=== PATIENT | male | born 1955 | race Caucasian/White ===

== ENCOUNTER 2021-04-23 18:25 | Emergency (ER) | payer MEDICARE, OTHER ==
[~2021-04-23] VITALS: Ht 172.7 cm; Wt 74.4 kg
[2021-04-23 18:27] VITALS: BP 151/78
[2021-04-23] MEDS ORDERED: OXYMETAZOLINE (AFRIN) 0.05% NA 30 ML BTL ONE (18:34)
--- NOTE | 2021-04-23 18:35 | ED EENT ---
History of Present Illness General Chief Complaint: Nasal Problems Stated Complaint: NOSE BLEED X2 DAYS History of Present Illness Date Seen by Provider: Apr 23, 2021 Time Seen by Provider: 18:31 Initial Comments 66-year-old male presents with bleeding of his left nare. He reports that started about 2-1/2 days ago. That she has continued to bleed and is unable to get it to stop. 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 Patient is not on any blood thinners. Patient denies any injury. Allergies and Home Medications Allergies Coded Allergies: No Known Drug Allergies (Unverified , 04/23/21) Patient Home Medication List Home Medication List Reviewed: Yes Review of Systems Review of Systems Constitutional: No chills, No fever Eyes: No Symptoms Reported Ears: No Symptoms Reported Nose: see HPI Mouth: no symptoms reported Throat: no symptoms reported Respiratory: no symptoms reported Cardiovascular: no symptoms reported Gastrointestinal: no symptoms reported Musculoskeletal: no symptoms reported Past Nncmsgc-Tdtego-Wpqcfx Hx Past Med/Social Hx: Reviewed Nursing Past Med/Soc Hx Physical Exam Vital Signs Vital Signs - First Documented 04/23/21 18:27 Temp 36.5 Pulse 75 Resp 18 B/P (MAP) 151/78 (102) Pulse Ox 94 O2 Delivery Room Air Height, Weight, BMI Height: '" Weight: lbs. oz. kg; BMI Method: General Appearance: no apparent distress Eyes: bilateral eye normal inspection Nose: active bleeding (left nare) Cardiovascular: normal peripheral pulses, regular rate, rhythm Respiratory: lungs clear, normal breath sounds Gastrointestinal: non tender, soft Neurologic/Psychiatric: alert, normal mood/affect, oriented x 3 Skin: normal color, warm/dry Progress/Results/Core Measures Results/Orders My Orders Orders - HODGES,CARMEN L DO Oxymetazoline 0.05% Nasal [place] (Afrin 0. (04/23/21 21:00) Vital Signs/I&O 04/23/21 18:27 Temp 36.5 Pulse 75 Resp 18 B/P (MAP) 151/78 (102) Pulse Ox 94 O2 Delivery Room Air Progress Progress Note : Progress Note Rhino Rocket was placed in left nare. Patient tolerated without difficulty. Discussed with him the need to follow-up with his primary care provider tomorrow the next day for removal and recheck of symptoms. Patient stable and discharged Departure Impression Primary Impression: Epistaxis Disposition: HOME, SELF-CARE Condition: Stable Departure-Patient Inst. Referrals: SELF,CHUCK SCHMIDT (PCP/Family) Primary Care Physician Patient Instructions: Nosebleeds (DC) Add. Discharge Instructions: Follow-up with your primary care provider tomorrow for removal of nasal packing and possible ENT consultation if bleeding continues All discharge instructions reviewed with patient and/or family. Voiced understanding. CARMEN HODGES DO Apr 23, 2021 18:35
[2021-04-23] MEDS ORDERED: OXYMETAZOLINE (AFRIN) 0.05% NA 30 ML BTL SCH (21:00)
== END 2021-04-23 19:08 | disposition home or self-care (01) ==
LOC: ER FS 18:27
DX: R04.0 Epistaxis (principal)
CPT/HCPCS: 99283

== ENCOUNTER 2022-01-22 18:39 | Emergency (ER) | payer MEDICARE, OTHER ==
[~2022-01-22] VITALS: Ht 172.7 cm; Wt 76.7 kg
--- NOTE | 2022-01-22 18:55 | ED GU-Male ---
General Stated Complaint: BLOOD IN URINE Source: patient Exam Limitations: no limitations History of Present Illness Date Seen by Provider: Jan 22, 2022 Time Seen by Provider: 18:41 Initial Comments 66yoM with PMH of HTN and HLD coming in due to hematuria. Started having brown- colored urine yesterday and today is more pink. Painless and is never happened before. Denies any history of cancer. Does not take any blood thinners. Does not have any trauma. Is otherwise denying any other acute complaints. Does smoke. Allergies and Home Medications Allergies Coded Allergies: No Known Drug Allergies (Unverified , 04/23/21) Patient Home Medication List Home Medication List Reviewed: Yes Review of Systems Review of Systems Constitutional: No chills, No fever EENTM: No blurred vision Respiratory: No cough Cardiovascular: No chest pain Gastrointestinal: No abdominal pain Genitourinary: denies burning; hematuria Musculoskeletal: no symptoms reported Skin: no symptoms reported Psychiatric/Neurological: No Symptoms Reported Endocrine: No Symptoms Reported Hematologic/Lymphatic: No Symptoms Reported All Other Systemes Reviewed Negative Unless Noted: Yes Past Amlesxi-Znpuzo-Nxvhch Hx Patient Social History Tobacco Use?: Yes Seasonal Allergies Seasonal Allergies: No Past Medical History Surgeries: Yes Tonsillectomy Respiratory: No Cardiac: Yes High Cholesterol, Hypertension Neurological: No Genitourinary: No Gastrointestinal: No Musculoskeletal: No Endocrine: No HEENT: No Cancer: No Psychosocial: No Integumentary: No Blood Disorders: No Physical Exam Vital Signs Vital Signs - First Documented 01/22/22 18:40 Temp 37.0 Pulse 72 Resp 16 B/P (MAP) 190/84 (119) Pulse Ox 100 O2 Delivery Room Air Capillary Refill : Height, Weight, BMI Height: '" Weight: lbs. oz. kg; 24.00 BMI Method: General Appearance: WD/WN, no apparent distress HEENT: PERRL/EOMI, normal ENT inspection, pharynx normal Neck: non-tender, full range of motion, supple, normal inspection Cardiovascular: regular rate, rhythm, no edema, no murmur Respiratory: chest non-tender, lungs clear, normal breath sounds, no respiratory distress, no accessory muscle use Gastrointestinal: normal bowel sounds, non tender, soft; No distended, No guarding, No rebound Back: normal inspection, no CVA tenderness, no vertebral tenderness Extremities: normal range of motion, non-tender, normal inspection, no pedal edema, no calf tenderness, normal capillary refill Neurologic/Psychiatric: no motor/sensory deficits, alert, normal mood/affect Skin: normal color, warm/dry Lymphatic: no adenopathy Progress/Results/Core Measures Suspected Sepsis SIRS Temperature: Pulse: Respiratory Rate: Laboratory Tests 01/22/22 18:50: White Blood Count 14.9H Blood Pressure / Mean: Laboratory Tests 01/22/22 18:50: Creatinine 0.74, INR Comment 1.0, Platelet Count 287 Results/Orders Lab Results Laboratory Tests Test 01/22/22 18:44 01/22/22 18:50 Range/Units Urine Color RED H Urine Clarity SL CLOUDY Urine pH 7.0 5-9 Urine Specific [place] 1.010 L 1.016-1.022 Urine Protein 1+ H NEGATIVE Urine Glucose (UA) NEGATIVE NEGATIVE Urine Ketones NEGATIVE NEGATIVE Urine Nitrite NEGATIVE NEGATIVE Urine Bilirubin NEGATIVE NEGATIVE Urine Urobilinogen 0.2 < = 1.0 MG/DL Urine Leukocyte Esterase NEGATIVE NEGATIVE Urine RBC (Auto) 3+ H NEGATIVE Urine RBC 50-100 H /HPF Urine WBC 0-2 /HPF Urine Squamous Epithelial Cells NONE /HPF Urine Crystals NONE /LPF Urine Bacteria NEGATIVE /HPF Urine Casts NONE /LPF Urine Mucus NEGATIVE /LPF Urine Culture Indicated NO White Blood Count 14.9 H 4.3-11.0 10^3/uL Red Blood Count 4.54 4.30-5.52 10^6/uL Hemoglobin 14.9 13.3-17.7 g/dL Hematocrit 43 40-54 % Mean Corpuscular Volume 96 80-99 fL Mean Corpuscular Hemoglobin 33 25-34 pg Mean Corpuscular Hemoglobin Concent 34 32-36 g/dL Red Cell Distribution Width 12.6 10.0-14.5 % Platelet Count 287 130-400 10^3/uL Mean Platelet Volume 10.3 9.0-12.2 fL Immature Granulocyte % (Auto) 1 % Neutrophils (%) (Auto) 57 42-75 % Lymphocytes (%) (Auto) 26 12-44 % Monocytes (%) (Auto) 13 H 0-12 % Eosinophils (%) (Auto) 3 0-10 % Basophils (%) (Auto) 1 0-10 % Neutrophils # (Auto) 8.4 H 1.8-7.8 10^3/uL Lymphocytes # (Auto) 3.9 1.0-4.0 10^3/uL Monocytes # (Auto) 2.0 H 0.0-1.0 10^3/uL Eosinophils # (Auto) 0.4 H 0.0-0.3 10^3/uL Basophils # (Auto) 0.1 0.0-0.1 10^3/uL Immature Granulocyte # (Auto) 0.1 0.0-0.1 10^3/uL Neutrophils % (Manual) 46 % Lymphocytes % (Manual) 37 % Monocytes % (Manual) 9 % Eosinophils % (Manual) 4 % Basophils % (Manual) 1 % Reactive Lymphocytes 3 % Platelet Estimate NORMAL Blood Morphology Comment NORMAL Prothrombin Time 13.2 12.2-14.7 SEC INR Comment 1.0 0.8-1.4 Activated Partial Thromboplast Time 36 H 24-35 SEC Sodium Level 128 L 135-145 MMOL/L Potassium Level 3.9 3.6-5.0 MMOL/L Chloride Level 92 L 98-107 MMOL/L Carbon Dioxide Level 24 21-32 MMOL/L Anion Gap 12 5-14 MMOL/L Blood Urea Nitrogen 11 7-18 MG/DL Creatinine 0.74 0.60-1.30 MG/DL Estimat Glomerular Filtration Rate 101 BUN/Creatinine Ratio 15 Glucose Level 101 70-105 MG/DL Calcium Level 9.3 8.5-10.1 MG/DL My Orders Orders - STEVIE ABEBE MD Basic Metabolic Panel (01/22/22 18:55) Cbc With Automated Diff (01/22/22 18:55) Protime With Inr (01/22/22 18:55) Partial Thromboplastin Time (01/22/22 18:55) Ua Culture If Indicated (01/22/22 18:55) Ed Iv/Invasive Line Start (01/22/22 19:09) Manual Differential (01/22/22 18:50) Ct Abdomen/Pelvis W (01/22/22 19:21) Iohexol Injection (Omnipaque 350 Mg/Ml 1 (01/22/22 19:45) Received Contrast (Hold Metformin- Contr (01/22/22 19:45) Ns (Ivpb) (Sodium Chloride 0.9% Ivpb Bag (01/22/22 19:45) Medications Given in ED Current Medications Medications Dose Ordered Sig/Luisa Route Start Time Stop Time Status Last Admin Dose Admin Iohexol 100 ml ONCE ONCE IV 01/22/22 19:45 01/22/22 19:46 DC 01/22/22 19:53 100 ML Sodium Chloride 100 ml ONCE ONCE IV 01/22/22 19:45 01/22/22 19:46 DC 01/22/22 19:52 100 ML Vital Signs/I&O 01/22/22 18:40 Temp 37.0 Pulse 72 Resp 16 B/P (MAP) 190/84 (119) Pulse Ox 100 O2 Delivery Room Air Capillary Refill : Progress Note : Progress Note 66-year-old male with above history coming in due to painless hematuria. ABCs were intact and vitals were stable on presentation. Physical exam with a soft and nontender abdomen. His urine is pink. Urinalysis does show a lot of red blood cells. Hemoglobin normal, platelets normal, creatinine normal, coagulation studies normal, and his sodium is 128 which is slightly low, but the patient says this is chronic for him. CT abdomen and pelvis with contrast ordered given I am concerned for cancer. On my interpretation I do see a bladder mass concerning for cancer. I will refer the patient to urology as an outpatient. He is not having enough bleeding to be concerning he is not passing large clots. He was then discharged home in stable condition with strict return precautions. Diagnostic Imaging Diagonstic Imaging: CT (abd/pelvis) Comments NAME: S[facility]NA NI [facility] REC#: [id number] PT STATUS: REG ER : 1955 PHYSICIAN: STEVIE ABEBE MD ADMIT DATE: 01/22/22/ER FS Draft Date of Exam:01/22/22 CT ABDOMEN/PELVIS W PROCEDURE: CT abdomen and pelvis with contrast. TECHNIQUE: Multiple contiguous axial images were obtained through the abdomen and pelvis after administration of intravenous contrast. Auto Exposure Controls were utilized during the CT exam to meet ALARA standards for radiation dose reduction. All CT scans use one or more of the following dose optimizing techniques: automated exposure control, MA and/or KvP adjustment based on patient size and exam type or iterative reconstruction. INDICATION: Hematuria. History of kidney stones. COMPARISON: None FINDINGS: Included portions of the lung bases show a 7 mm micronodule within the included posterior margins of the right middle lobe (image 5, series 3). CT ABDOMEN: There is scattered colonic diverticulosis, but no CT evidence of acute diverticulitis. Small bowel loops are nondistended. Normal appendix cannot be adequately identified, but there is no pericecal inflammation. Liver is diffusely hypodense on this postcontrast exam. Findings are consistent with hepatic steatosis. No suspicious hepatic masses are identified. Left adrenal nodule measures 1.2 cm and is otherwise incompletely characterized on this exam. Right adrenal gland has a normal CT appearance. The pancreas, spleen, and kidneys have a normal CT appearance. There is no loculated fluid collection, free fluid, nor free air within the abdomen. No abnormal mesenteric or retroperitoneal adenopathy is seen. There is moderate diffuse calcified aortic and arterial atherosclerosis. Osseous structures show no acute abnormalities. CT PELVIS: Evaluation of the urinary bladder demonstrates a 1.5 cm nodule laterally on the left. Small filling defect is also seen posteriorly within the gravity dependent portion of the urinary bladder (image 66, series 10). There is no loculated fluid collection, free fluid, nor free air within the pelvis. No abnormal adenopathy is seen. Osseous structures show no acute abnormalities. Left inguinal hernia is identified and is primarily fat-containing. There is however a portion of the distal descending colon which extends just into the orifice of the hernia. IMPRESSION: 1. Soft tissue nodule within the left lateral margins of the urinary bladder. This is concerning for neoplasm/malignancy. Correlation with direct visualization and tissue sampling is recommended. 2. Additional filling defect is seen within the gravity dependent portion of the urinary bladder. This could be on the basis of debris, although a second site of soft tissue lesion cannot be excluded. 3. Indeterminate left adrenal nodule. Correlation with dedicated renal protocol CT is recommended and could be performed on a nonemergent basis. 4. A 7 mm nodule within the included portions of the right middle lobe. A 6 month follow-up is recommended. 5. Hepatic steatosis. 6. Other nonemergent findings, as detailed above. Dictated on workstation # [id number] Dict: 01/22/222031 Trans: 01/22/222044 [facility] [id number] Interpreted by: DAVON TRISTAN MD Electronically signed by: Departure Impression Primary Impression: Painless hematuria Additional Impressions: Bladder mass Lung nodule Adrenal nodule Disposition: 01 HOME, SELF-CARE Condition: Stable Departure-Patient Inst. Referrals: SELF,CHUCK SCHMIDT (PCP/Family) Primary Care Physician JOEY HOFFMANN MD Patient Instructions: Blood in Urine (Hematuria), Adult ED Add. Discharge Instructions: You were seen in the emergency department for blood in your urine. I am concerned that you could have some type of cancer. If you begin having very large amounts of blood coming out that will not stop and is constant and you can call your regular doctor or come back to the ER. If you get to a point where the blood clots are stopping you from being able to urinate then please come back to the ER. Please follow-up with a urologist of your choice. Some options are: Dr. Hoffmann in [facility] urology in [place] (call [phone] to schedule an appointment) [facility] associated [phone] There is also a small nodule in your left adrenal which is just above the kidney on the left which typically is nothing but needs follow-up imaging in roughly 6 months. You also have a small nodule in your right lung which typically is also nothing but needs follow-up imaging in roughly 6 months. If you tell your primary care doctor this they can order the studies. STEVIE ABEBE MD Jan 22, 2022 18:55
[2022-01-22 19:06] LABS: BASOPHILS # (AUTO) 0.1 10^3/uL (0.0-0.1); BASOPHILS % (AUTO) 1 % (0-10); EOSINOPHILS # (AUTO) 0.4 10^3/uL (0.0-0.3); EOSINOPHILS % (AUTO) 3 % (0-10); HEMATOCRIT 43 % (40-54); HEMOGLOBIN 14.9 g/dL (13.3-17.7); LYMPHOCYTES # (AUTO) 3.9 10^3/uL (1.0-4.0); LYMPHOCYTES % (AUTO) 26 % (12-44); MEAN CORPUSCULAR HEMOGLOBIN 33 pg (25-34); MEAN CORPUSCULAR HGB CONC 34 g/dL (32-36); MEAN CORPUSCULAR VOLUME 96 fL (80-99); MEAN PLATELET VOLUME 10.3 fL (9.0-12.2); MONOCYTES % (AUTO) 13 % (0-12); NEUTROPHILS # (AUTO) 8.4 10^3/uL (1.8-7.8); NEUTROPHILS % (AUTO) 57 % (42-75); PLATELET COUNT 287 10^3/uL (130-400); WHITE BLOOD COUNT 14.9 10^3/uL (4.3-11.0)
[2022-01-22 19:10] LABS: BILIRUBIN,URINE NEGATIVE (NEGATIVE); CLARITY,URINE SL CLOUDY; COLOR,URINE RED; GLUCOSE, URINE (UA) NEGATIVE (NEGATIVE); KETONES,URINE NEGATIVE (NEGATIVE); LEUKOCYTE ESTERASE ,URINE NEGATIVE (NEGATIVE); NITRITE,URINE NEGATIVE (NEGATIVE); PROTEIN,URINE 1+ (NEGATIVE)
[2022-01-22 19:20] LABS: PROTHROMBIN TIME PATIENT 13.2 SEC (12.2-14.7)
[2022-01-22 19:29] LABS: BACTERIA,URINE NEGATIVE /HPF; RBC,URINE 50-100 /HPF; WBC,URINE 0-2 /HPF
[2022-01-22 19:33] LABS: CALCIUM 9.3 MG/DL (8.5-10.1); CREATININE SERUM 0.74 MG/DL (0.60-1.30); POTASSIUM 3.9 MMOL/L (3.6-5.0)
[2022-01-22 19:37] LABS: BASOPHILS % (MANUAL) 1 %; EOSINOPHILS % (MANUAL) 4 %; LYMPHOCYTES % (MANUAL) 37 %; MONOCYTES % (MANUAL) 9 %; NEUTROPHILS % (MANUAL) 46 %; PLATELET ESTIMATE NORMAL; RBC MORPH NORMAL; REACTIVE LYMPHOCYTES 3 %
[2022-01-22] MEDS ORDERED: IOHEXOL 350 MG/ML 100 ML (OMNIPAQUE 350) VIAL IV ONE (19:45)
[2022-01-22] MEDS ORDERED: NS 100 ML (IVPB) BAG IV ONE (19:45)
[2022-01-22] MEDS ORDERED: HOLD METFORMIN - RECEIVED CONTRAST 20 ML VIAL IV SCH (19:45)
--- NOTE | 2022-01-22 20:46 | Diagnostic Imaging Report ---
PROCEDURE: CT abdomen and pelvis with contrast. TECHNIQUE: Multiple contiguous axial images were obtained through the abdomen and pelvis after administration of intravenous contrast. Auto Exposure Controls were utilized during the CT exam to meet ALARA standards for radiation dose reduction. All CT scans use one or more of the following dose optimizing techniques: automated exposure control, MA and/or KvP adjustment based on patient size and exam type or iterative reconstruction. INDICATION: Hematuria. History of kidney stones. COMPARISON: None FINDINGS: Included portions of the lung bases show a 7 mm micronodule within the included posterior margins of the right middle lobe (image 5, series 3). CT ABDOMEN: There is scattered colonic diverticulosis, but no CT evidence of acute diverticulitis. Small bowel loops are nondistended. Normal appendix cannot be adequately identified, but there is no pericecal inflammation. Liver is diffusely hypodense on this postcontrast exam. Findings are consistent with hepatic steatosis. No suspicious hepatic masses are identified. Left adrenal nodule measures 1.2 cm and is otherwise incompletely characterized on this exam. Right adrenal gland has a normal CT appearance. The pancreas, spleen, and kidneys have a normal CT appearance. There is no loculated fluid collection, free fluid, nor free air within the abdomen. No abnormal mesenteric or retroperitoneal adenopathy is seen. There is moderate diffuse calcified aortic and arterial atherosclerosis. Osseous structures show no acute abnormalities. CT PELVIS: Evaluation of the urinary bladder demonstrates a 1.5 cm nodule laterally on the left. Small filling defect is also seen posteriorly within the gravity dependent portion of the urinary bladder (image 66, series 10). There is no loculated fluid collection, free fluid, nor free air within the pelvis. No abnormal adenopathy is seen. Osseous structures show no acute abnormalities. Left inguinal hernia is identified and is primarily fat-containing. There is however a portion of the distal descending colon which extends just into the orifice of the hernia. IMPRESSION: 1. Soft tissue nodule within the left lateral margins of the urinary bladder. This is concerning for neoplasm/malignancy. Correlation with direct visualization and tissue sampling is recommended. 2. Additional filling defect is seen within the gravity dependent portion of the urinary bladder. This could be on the basis of debris, although a second site of soft tissue lesion cannot be excluded. 3. Indeterminate left adrenal nodule. Correlation with dedicated renal protocol CT is recommended and could be performed on a nonemergent basis. 4. A 7 mm nodule within the included portions of the right middle lobe. A 6 month follow-up is recommended. 5. Hepatic steatosis. 6. Other nonemergent findings, as detailed above. Dictated by: Dictated on workstation # [id number]
[2022-01-22 21:07] VITALS: BP 152/67
== END 2022-01-22 21:07 | disposition home or self-care (01) ==
LOC: EDUNIT# 18:39 → ER FS 18:40
DX: R31.9 Hematuria, unspecified (principal); N32.9 Bladder disorder, unspecified; R91.1 Solitary pulmonary nodule; E27.9 Disorder of adrenal gland, unspecified; Z72.0 Tobacco use
CPT/HCPCS: 36415; 74177; 80048; 81000; 85007; 85027; 85610; 85730; Q9967

== ENCOUNTER 2022-03-28 05:31 | Outpatient (CLI) | payer MEDICARE, OTHER ==
[~2022-03-28] VITALS: Ht 172.7 cm; Wt 74.6 kg
[2022-03-28] MEDS ORDERED: LISI1TAB48 PO (10:40)
[2022-03-28] MEDS ORDERED: PRAV40TA2 PO (10:40)
== END 2022-03-28 10:41 | disposition home or self-care (01) ==
LOC: PREOP 05:31
PROVIDERS: ATTEND Surgery
DX: Z01.818 Encounter for other preprocedural examination (principal)

== ENCOUNTER 2022-04-02 10:20 | Day surgery (SDC) | payer MEDICARE, OTHER ==
[~2022-04-02] VITALS: Ht 172.7 cm; Wt 74.6 kg
[~2022-04-02 10:20] MED LIST: LISI1TAB48 PO; PRAV40TA2 PO
[2022-04-02] MEDS ORDERED: LACTATED RINGERS 1,000 ML IV STA (10:44)
--- NOTE | 2022-04-02 11:06 | Progress Note-Pre Operative ---
Pre-Operative Progress Note H&P Reviewed The H&P was reviewed, patient examined and no changes noted. Time Seen by Provider: 11:05 Date H&P Reviewed: April 02, 2022 Time H&P Reviewed: 11:05 Pre-Operative Diagnosis: SERENA Gregory DO April 02, 2022 11:06
[2022-04-02 11:10] VITALS: BP 188/91
[2022-04-02] MEDS ORDERED: PROPOFOL INJECTION 50 ML IV ONE (12:03)
[2022-04-02] MEDS ORDERED: MIDAZOLAM 2 MG/2 ML (VERSED) VIAL ONE (12:03)
[2022-04-02 12:45] VITALS: BP 143/73
[2022-04-02 12:49] VITALS: BP 141/76
--- NOTE | 2022-04-02 13:11 | Anesthesia-General Post-Op ---
MAC Patient Condition Mental Status/LOC: Same as Preop Cardiovascular: Satisfactory Nausea/Vomiting: Absent Respiratory: Satisfactory Pain: Controlled Complications: Absent Post Op Complications Complications None Follow Up Care/Instructions Patient Instructions None needed. Anesthesiology Discharge Order Discharge Order Patient is doing well, no complaints, stable vital signs, no apparent adverse anesthesia problems. No complications reported per nursing. CHINO VALENZUELA CRNA April 02, 2022 13:11
--- NOTE | 2022-04-02 13:14 | Progress Note-Post Operative ---
Post-Operative Progess Note Surgeon (s)/Compressor Stations Superintendent (s) Surgeon SERENA YANES DO Compressor Stations Superintendent: none Pre-Operative Diagnosis Screening Post-Operative Diagnosis Polyp Diverticula Int hemorrhoids Procedure & Operative Findings Date of Procedure 04/02/22 Procedure Performed/Findings Colon with snare Colon with cold bx PROCEDURE NOTE: After informed consent was obtained, the patient was brought to the endoscopy suite, placed in bed in left lateral decubitus position. He was administered IV sedation by the INTELLIGENT SYSTEMS ENGINEER who then monitored his vitals the entire time, heart rate, blood pressure and pulse ox and the scope was inserted, pushed all the way to about 130 cm and pushed into the cecum, took a picture of appendiceal orifice and noted the ileocecal valve. Then slowly withdrew the scope insufflating to look circumferentially at the baker starting in the cecum and up the ascending colon. Just outside the cecum I found some tattooing and took a picture of this; did not find any polyps or other pathology here. Continued up to the hepatic flexure, then down the transverse colon to the splenic flexure and into the descending colon. I found 3 flat polyps here that I did cold biopsies on. Next, down into the sigmoid where I found 3 larger polyps and elected to remove them with snare polypectomy. Finally into the rectal vault and retroflexed the scope. Took picture of the internal hemorrhoids. The patient tolerated the procedure. He was recovered in endoscopy suite. Recommended for repeat colonoscopy in 3 years. Anesthesia Type IV sedation by INTELLIGENT SYSTEMS ENGINEER Estimated Blood Loss Estimated blood loss (mL): scant Specimens/Packing Specimens Removed desc colon polyp bx x 3 sigmoid polyps x 3 SERENA YANES DO April 02, 2022 13:14
[2022-04-02 13:15] VITALS: BP 166/83
--- NOTE | 2022-04-02 13:15 | Endoscopy Discharge Instruct ---
Endo Procedure/Findings Findings 1.: Polyp 2.: Diverticulosis 3.: Internal Hemorrhoids Discharge Instructions - Activity: You might feel a little sleepy until tomorrow. This is due to the medicine you received to relax you. Until tomorrow, you should: NOT drive a car, operate machinery or power tools. NOT drink any alcoholic beverages. NOT make any important decisions or sign importortant papers. Do not return to work until tomorrow, unless otherwise instructed. Resume previous activities tomorrow. Diet: Start by taking liquids. If you tolerate liquids, advance to solid food. 1.: Colonscopy in 3 years Notify Physician - If you experience excessive bleeding, unusual abdominal pain, fever, or chest pain, contact your doctor immediately. SERENA YANES DO April 02, 2022 13:15
== END 2022-04-02 13:33 | disposition home or self-care (01) ==
LOC: ENDO 10:20
PROVIDERS: ATTEND Surgery
DX: Z12.11 Encounter for screening for malignant neoplasm of colon (principal); D12.4 Benign neoplasm of descending colon; D12.5 Benign neoplasm of sigmoid colon; K63.5 Polyp of colon; K57.30 Diverticulosis of large intestine without perforation or abscess without bleeding; K64.8 Other hemorrhoids; F17.210 Nicotine dependence, cigarettes, uncomplicated; Z28.310 Unvaccinated for COVID-19; Z28.89 Immunization not carried out for other reason; Z85.51 Personal history of malignant neoplasm of bladder
CPT/HCPCS: 88305

== ENCOUNTER 2023-01-02 16:27 | Observation (INO) | payer MEDICARE, OTHER ==
[~2023-01-02] VITALS: Ht 172.7 cm; Wt 71.7 kg
[2023-01-02] VITALS (7 sets, daily range): BP systolic 110–139; BP diastolic 54–65
[2023-01-02] MEDS ORDERED: LACTATED RINGERS 1,000 ML IV STA (16:41)
[2023-01-02] MEDS ORDERED: ONDANSETRON 4 MG/2 ML (SDV) Z0FRAN IVP ONE (16:45)
--- NOTE | 2023-01-02 16:46 | ED General ---
General Stated Complaint: BLURRY VISION/WEAKNESS/FATIGUE Source of Information: Patient, Old Records Exam Limitations: No Limitations History of Present Illness Date Seen by Provider: Jan 02, 2023 Time Seen by Provider: 16:30 Initial Comments 67yoM with PMH of HTN, HLD, recent bladder cancer s/p removal, and alcohol use disorder coming in due to numerous episodes of black vomit and stool On the night of the Superbowl, was having some nausea. This came back this week with a few days ago about 24 hrs of n/v. He states the vomit and stool were essentially the same color and describes essentially coffee ground emesis. Feels light headed at times and vision sometimes seems to go partially black. Denies any chest pain, SOB, abd pain, diarrhea, focal weakness, or any other concerns. He takes 600mg of ibuprofen nightly and has for years. He drinks 2 shots of liquor, 8-9 beers, and 2 to 3 glasses of wine daily. He has not had any alcohol in almost 4 days. Allergies and Home Medications Allergies Coded Allergies: No Known Drug Allergies (Unverified , 04/23/21) Patient Home Medication List Home Medication List Reviewed: Yes Lisinopril/Hydrochlorothiazide (Lisinopril-Hctz 20-25 mg Tab) 20 Mg-25 Mg Tablet, 1 EACH PO DAILY, (Reported) Entered as Reported by: VERA GOMEZ on 03/28/22 1040 Pravastatin Sodium (Pravastatin Sodium) 40 Mg Tablet, 40 MG PO HS, (Reported) Entered as Reported by: VERA GOMEZ on 03/28/22 1040 Review of Systems Review of Systems Constitutional: No fever EENTM: no symptoms reported Respiratory: no symptoms reported Cardiovascular: no symptoms reported Gastrointestinal: see HPI Genitourinary: no symptoms reported Musculoskeletal: no symptoms reported Skin: no symptoms reported Psychiatric/Neurological: See HPI Hematologic/Lymphatic: No Symptoms Reported Immunological/Allergic: no symptoms reported Past Eniizfx-Tgplop-Humgzo Hx Seasonal Allergies Seasonal Allergies: No Past Medical History Surgeries: Yes (TURBT) Tonsillectomy, Vasectomy Respiratory: No Cardiac: Yes High Cholesterol, Hypertension Neurological: No Genitourinary: No (recent TURBT) Gastrointestinal: No Musculoskeletal: No Endocrine: No HEENT: No Cancer: No Psychosocial: No Integumentary: No Blood Disorders: No Physical Exam Vital Signs Vital Signs - First Documented 01/02/23 16:30 Temp 36.0 Pulse 96 Resp 16 B/P (MAP) 139/58 (85) Pulse Ox 100 O2 Delivery Room Air Capillary Refill : Height, Weight, BMI Height: '" Weight: lbs. oz. kg; 25.01 BMI Method: General Appearance: No Apparent Distress, WD/WN Eyes: Bilateral Eye Other (Pale conjunctive a) HEENT: PERRL/EOMI, Normal ENT Inspection, Pharynx Normal, Other (Normal visual bolivar and visual acuity) Neck: Full Range of Motion, Normal Inspection, Non Tender, Supple Respiratory: Chest Non Tender, Lungs Clear, Normal Breath Sounds, No Accessory Muscle Use, No Respiratory Distress Cardiovascular: Regular Rate, Rhythm, No Edema, Normal Peripheral Pulses Gastrointestinal: Normal Bowel Sounds, Non Tender, Soft; No Distended, No Guarding Rectal: Normal Rectal Tone, Heme Positive Stool (Faintly positive at 3 minutes), Other (Brown stool) Back: Normal Inspection, No CVA Tenderness Extremity: Normal Capillary Refill, Normal Inspection, Normal Range of Motion, Non Tender, No Calf Tenderness, No Pedal Edema Neurologic/Psychiatric: Alert, Oriented x3, No Motor/Sensory Deficits, Normal Mood/Affect, account officer II-XII Norm as Tested, Other (Normal gait, normal vhcvne-sk-ryso) Skin: Warm/Dry, Other (Pale) Focused Exam Lactate Level 01/02/23 16:38: Lactic Acid Level 3.22*H Lactic Acid Level Laboratory Tests Test 01/02/23 16:38 Lactic Acid Level 3.22 MMOL/L (0.50-2.00) *H Progress/Results/Core Measures Suspected Sepsis SIRS Temperature: Pulse: Respiratory Rate: Laboratory Tests 01/02/23 16:38: White Blood Count 19.3H Blood Pressure / Mean: 01/02/23 16:38: Lactic Acid Level 3.22*H Laboratory Tests 01/02/23 16:38: Creatinine 0.78, INR Comment 1.1, Platelet Count 358, Total Bilirubin 0.2 Results/Orders Lab Results Laboratory Tests Test 01/02/23 16:38 01/02/23 16:39 Range/Units White Blood Count 19.3 H 4.3-11.0 10^3/uL Red Blood Count 1.45 L 4.30-5.52 10^6/uL Hemoglobin 4.8 *L 13.3-17.7 g/dL Hematocrit 15 *L 40-54 % Mean Corpuscular Volume 101 H 80-99 fL Mean Corpuscular Hemoglobin 33 25-34 pg Mean Corpuscular Hemoglobin Concent 33 32-36 g/dL Red Cell Distribution Width 15.6 H 10.0-14.5 % Platelet Count 358 130-400 10^3/uL Mean Platelet Volume 10.3 9.0-12.2 fL Immature Granulocyte % (Auto) 3 % Neutrophils (%) (Auto) 62 42-75 % Lymphocytes (%) (Auto) 23 12-44 % Monocytes (%) (Auto) 12 0-12 % Eosinophils (%) (Auto) 0 0-10 % Basophils (%) (Auto) 0 0-10 % Neutrophils # (Auto) 11.9 H 1.8-7.8 10^3/uL Lymphocytes # (Auto) 4.5 H 1.0-4.0 10^3/uL Monocytes # (Auto) 2.3 H 0.0-1.0 10^3/uL Eosinophils # (Auto) 0.1 0.0-0.3 10^3/uL Basophils # (Auto) 0.0 0.0-0.1 10^3/uL Immature Granulocyte # (Auto) 0.5 H 0.0-0.1 10^3/uL Neutrophils % (Manual) 58 % Lymphocytes % (Manual) 28 % Monocytes % (Manual) 11 % Eosinophils % (Manual) 1 % Myelocytes % 1 % Band Neutrophils 1 % Platelet Estimate NORMAL Polychromasia MODERATE Hypochromasia 1+ Microcytosis 1+ Macrocytosis 1+ Prothrombin Time 14.5 12.2-14.7 SEC INR Comment 1.1 0.8-1.4 Activated Partial Thromboplast Time 25 24-35 SEC Sodium Level 122 *L 135-145 MMOL/L Potassium Level 3.8 3.6-5.0 MMOL/L Chloride Level 86 L 98-107 MMOL/L Carbon Dioxide Level 22 21-32 MMOL/L Anion Gap 14 5-14 MMOL/L Blood Urea Nitrogen 12 7-18 MG/DL Creatinine 0.78 0.60-1.30 MG/DL Estimat Glomerular Filtration Rate 98 BUN/Creatinine Ratio 15 Glucose Level 127 H 70-105 MG/DL Lactic Acid Level 3.22 *H 0.50-2.00 MMOL/L Calcium Level 8.6 8.5-10.1 MG/DL Corrected Calcium 8.8 8.5-10.1 MG/DL Magnesium Level 1.5 L 1.6-2.4 MG/DL Total Bilirubin 0.2 0.1-1.0 MG/DL Aspartate Amino Transf (AST/SGOT) 25 5-34 U/L Alanine Aminotransferase (ALT/SGPT) 25 0-55 U/L Alkaline Phosphatase 70 40-136 U/L Troponin I < 0.30 <0.30 NG/ML Pro-B-Type Natriuretic Peptide 421.6 H <125.0 PG/ML Total Protein 5.7 L 6.4-8.2 GM/DL Albumin 3.7 3.2-4.5 GM/DL Lipase 32 8-78 U/L Serum Alcohol < 10 <10 MG/DL Glucometer 126 H 70-110 MG/DL My Orders Orders - STEVIE ABEBE MD Cbc With Automated Diff (01/02/23 16:40) Magnesium (01/02/23 16:40) Chest 1 View Ap/Pa Only (01/02/23 16:40) Ekg Tracing (01/02/23 16:40) Comprehensive Metabolic Panel (01/02/23 16:40) Protime With Inr (01/02/23 16:40) Partial Thromboplastin Time (01/02/23 16:40) O2 (01/02/23 16:40) Monitor-Rhythm Ecg Trace Only (01/02/23 16:40) Ed Iv/Invasive Line Start (01/02/23 16:40) Lipase (01/02/23 16:40) Troponin I Fs (01/02/23 16:40) Probnp Fs (01/02/23 16:40) Lactated Ringers (Lr 1000 Ml Iv Solution (01/02/23 16:41) Ondansetron Injection (Zofran Injectio (01/02/23 16:45) Manual Differential (01/02/23 16:38) Lactic Acid Analyzer (01/02/23 17:05) Ua Culture If Indicated (01/02/23 17:05) Pantoprazole Injection (Protonix Injecti (01/02/23 17:15) Ceftriaxone 1 Gm Pre-Mix (Rocephin 1 Gm (01/02/23 17:15) Ct Head Wo (01/02/23 17:09) Alcohol (01/02/23 17:21) Medications Given in ED Current Medications Medications Dose Ordered Sig/Luisa Route Start Time Stop Time Status Last Admin Dose Admin Ceftriaxone Sodium/Dextrose 50 ml @ 100 mls/hr ONCE ONCE IV 01/02/23 17:15 01/02/23 17:44 DC 01/02/23 17:16 100 MLS/HR Ondansetron HCl 4 mg ONCE ONCE IVP 01/02/23 16:45 01/02/23 16:46 DC 01/02/23 16:56 4 MG Pantoprazole 40 mg ONCE ONCE IV 01/02/23 17:15 01/02/23 17:16 DC 01/02/23 17:17 40 MG Vital Signs/I&O 01/02/23 16:30 Temp 36.0 Pulse 96 Resp 16 B/P (MAP) 139/58 (85) Pulse Ox 100 O2 Delivery Room Air Capillary Refill : Progress Note : Progress Note 67yoM with above history coming in due to multiple episodes of hematemesis and melena on Saturday that has since stopped. Now feeling lightheaded and general weakness. Patient very pale on exam. Stool is brown and faintly positive with Hemoccult. Given his ibuprofen history and drinking history, he would have multiple reasons to potentially have a GI bleed. Hemoglobin today is 4.8, normal platelets, normal INR, normal creatinine, normal AST and ALT, total bilirubin of 0.2, sodium low at 122. An IV was placed and he was given Protonix as well as ceftriaxone. Given lower concern for active bleeding at this time, did not give octreotide. The patient needs to have blood transfusion at this time. Chest x-ray clear. CT head ordered due to some vague vision changes which was negative for acute findings. I contacted Dr. Niño for consultation who will be following along for the patient's case. I then contacted Dr. Gutiérrez. who will admit him to the ICU under observation status. I then gave signout to the intensive care physician. ECG Initial ECG Impression Date: Jan 02, 2023 Initial ECG Impression Time: 16:37 Initial ECG Rate: 99 Initial ECG Rhythm: Normal Sinus Comment Narrow QRS, borderline left axis deviation, some ST depression in the lateral leads, no STEMI Diagnostic Imaging Diagonstic Imaging: Xray (chest ), CT (head) Comments NAME: SERENA IN [facility] REC#: [id number] PT STATUS: REG ER : 1955 PHYSICIAN: STEVIE ABEBE MD ADMIT DATE: 01/02/23/ER FS Draft Date of Exam:01/02/23 CHEST 1 VIEW AP/PA ONLY CLINICAL INDICATION: Patient with blurry vision, weakness and fatigue. EXAM: Portable chest x-ray upright view. COMPARISON: None. FINDINGS: Lungs/pleura: Lungs are clear. There is no pneumothorax. There is no pleural effusion. Mediastinum: Unremarkable. Pulmonary vasculature: Unremarkable. Heart: Unremarkable. Bones/extrathoracic soft tissue: There are degenerative spurs involving the thoracic spine. IMPRESSION: There is no radiographic evidence of acute cardiopulmonary process. Dictated on workstation # [id number] Dict: 01/02/23 1705 Trans: 01/02/23 1708 AS6 [id number] Interpreted by: CAITLIN JO MD Electronically signed by: NAME: SERENA NI [facility] REC#: [id number] PT STATUS: REG ER : 1955 PHYSICIAN: STEVIE ABEBE MD ADMIT DATE: 01/02/23/ER FS Draft Date of Exam:01/02/23 CT HEAD WO CLINICAL INDICATION: Patient with blurred vision and fatigue. EXAM: Axial CT scan of the brain without IV contrast with coronal and sagittal reformatted images. Auto Exposure Controls were utilized during the CT exam to meet ALARA standards for radiation dose reduction. COMPARISON: None. FINDINGS: There is no evidence of acute cerebral infarct, intracranial hemorrhage, or gross mass effect. The brain parenchymal volume appears appropriate for patient's age. There are subtle patchy areas of low-attenuation white matter changes involving both cerebral hemispheres, likely representing chronic small vessel ischemic disease. There is normal adams-white matter distinction. There is no significant midline shift or herniation. There is no evidence of hydrocephalus. The basal cisterns are unremarkable. The skull, extracranial soft tissue, and orbits are unremarkable. The paranasal sinuses are unremarkable. Temporal bones show no significant abnormality. IMPRESSION: Age-related brain parenchymal changes with no evidence of acute intracranial process. Dictated on workstation # [id number] Dict: 01/02/23 1726 Trans: 01/02/23 1731 AS6 [id number] Interpreted by: CAITLIN JO MD Electronically signed by: Departure Impression Primary Impression: GI bleed Qualified Codes: K92.1 - Melena Additional Impression: Anemia Qualified Codes: D62 - Acute posthemorrhagic anemia Disposition: 30 STILL A PATIENT Condition: Stable Admissions Decision to Admit Reason: Admit from ER (General) Transfer Method of Transfer: EMS Departure-Patient Inst. Referrals: CHUCK GALE MD (PCP/Family) Primary Care Physician STEVIE ABEBE MD Jan 02, 2023 16:46
[2023-01-02 16:52] LABS: BASOPHILS % (AUTO) 0 % (0-10); EOSINOPHILS # (AUTO) 0.1 10^3/uL (0.0-0.3); EOSINOPHILS % (AUTO) 0 % (0-10); LYMPHOCYTES # (AUTO) 4.5 10^3/uL (1.0-4.0); LYMPHOCYTES % (AUTO) 23 % (12-44); MEAN CORPUSCULAR HEMOGLOBIN 33 pg (25-34); MEAN CORPUSCULAR HGB CONC 33 g/dL (32-36); MEAN CORPUSCULAR VOLUME 101 fL (80-99); MEAN PLATELET VOLUME 10.3 fL (9.0-12.2); MONOCYTES # (AUTO) 2.3 10^3/uL (0.0-1.0); MONOCYTES % (AUTO) 12 % (0-12); NEUTROPHILS # (AUTO) 11.9 10^3/uL (1.8-7.8); NEUTROPHILS % (AUTO) 62 % (42-75); PLATELET COUNT 358 10^3/uL (130-400); WHITE BLOOD COUNT 19.3 10^3/uL (4.3-11.0)
[2023-01-02 16:57] LABS: HEMOGLOBIN 4.8 g/dL (13.3-17.7)
[2023-01-02 16:58] LABS: HEMATOCRIT 15 % (40-54)
[2023-01-02 17:07] LABS: INR 1.1 (0.8-1.4); PROTHROMBIN TIME PATIENT 14.5 SEC (12.2-14.7)
--- NOTE | 2023-01-02 17:08 | Diagnostic Imaging Report ---
CLINICAL INDICATION: Patient with blurry vision, weakness and fatigue. EXAM: Portable chest x-ray upright view. COMPARISON: None. FINDINGS: Lungs/pleura: Lungs are clear. There is no pneumothorax. There is no pleural effusion. Mediastinum: Unremarkable. Pulmonary vasculature: Unremarkable. Heart: Unremarkable. Bones/extrathoracic soft tissue: There are degenerative spurs involving the thoracic spine. IMPRESSION: There is no radiographic evidence of acute cardiopulmonary process. Dictated by: Dictated on workstation # [id number]
[2023-01-02 17:12] LABS: CREATININE SERUM 0.78 MG/DL (0.60-1.30); POTASSIUM 3.8 MMOL/L (3.6-5.0)
[2023-01-02 17:13] LABS: ALBUMIN 3.7 GM/DL (3.2-4.5); BILIRUBIN,TOTAL 0.2 MG/DL (0.1-1.0); CALCIUM 8.6 MG/DL (8.5-10.1); MAGNESIUM 1.5 MG/DL (1.6-2.4); TOTAL PROTEIN 5.7 GM/DL (6.4-8.2)
[2023-01-02] MEDS ORDERED: PANTOPRAZOLE 40 MG (PROTONIX) VIAL IV ONE (17:15)
[2023-01-02] MEDS ORDERED: cefTRIAXone 1 GM PRE-MIX 50 ML IV ONE (17:15)
[2023-01-02 17:30] LABS: BAND NEUTROPHILS 1 %; EOSINOPHILS % (MANUAL) 1 %; HYPOCHROMASIA 1+; LYMPHOCYTES % (MANUAL) 28 %; MICROCYTOSIS 1+; MONOCYTES % (MANUAL) 11 %; MYELOCYTES % 1 %; NEUTROPHILS % (MANUAL) 58 %; PLATELET ESTIMATE NORMAL; POLYCHROMASIA MODERATE
--- NOTE | 2023-01-02 17:31 | Diagnostic Imaging Report ---
CLINICAL INDICATION: Patient with blurred vision and fatigue. EXAM: Axial CT scan of the brain without IV contrast with coronal and sagittal reformatted images. Auto Exposure Controls were utilized during the CT exam to meet ALARA standards for radiation dose reduction. COMPARISON: None. FINDINGS: There is no evidence of acute cerebral infarct, intracranial hemorrhage, or gross mass effect. The brain parenchymal volume appears appropriate for patient's age. There are subtle patchy areas of low-attenuation white matter changes involving both cerebral hemispheres, likely representing chronic small vessel ischemic disease. There is normal adams-white matter distinction. There is no significant midline shift or herniation. There is no evidence of hydrocephalus. The basal cisterns are unremarkable. The skull, extracranial soft tissue, and orbits are unremarkable. The paranasal sinuses are unremarkable. Temporal bones show no significant abnormality. IMPRESSION: Age-related brain parenchymal changes with no evidence of acute intracranial process. Dictated by: Dictated on workstation # [id number]
--- OUTSIDE RECORDS SUMMARY | 2023-01-02 20:05 | XMS REPORT ---
Author Author [facility] Address Unknown Phone Unavailable Care Team Providers Care Mixing Supervisor Name Role Phone CHUCK GALE Unavailable PROBLEMS Type Condition ICD9-CM Code QGU78-FS Code Onset Dates Condition S tatus W/U Status Risk SNOMED Code Notes Problem History of colonic polyps Z86.010 confirmed [id number] Problem Cigarette nicotine dependence without complication F17.210 confirmed [id number] Problem Mixed hyperlipidemia E78.2 Aug, confirmed [id number] Problem Psoriasis L40.9 confirmed [id number] Problem Essential (primary) hypertension I10 conf irmed [id number] 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 [id number] ALLERGIES No Known Allergies ENCOUNTERS from 1955 to 2022-11-24 Encounter Location Date Provider Diagnosis [facility] [place] [id number] [address] Dec, CHUCK SELF Essential (primary) hypertension I10 ; Mixed hyperlipidemia E78.2 and Screening PSA (prostate specific antigen) Z12.5 IMMUNIZATIONS Vaccine Route Administration Date Status 1st Dose MODERNA COVID-19, mRNA, 0.5 mL Unknown March 21, 2022 Refused PRIVATE FLULAVAL QUAD 0.5ML (6 MO AND UP) 2020 Unknown M ay 2021 Refused PRIVATE FLULAVAL QUAD 0.5ML (6 MO AND UP) 2018 Unknown F eb 2019 Refused PRIVATE SHINGRIX (HERPES ZOSTER-2 DOSE) Unknown March 21, 2022 Refused PRIVATE PCV 13 (PREVNAR) Unknown March 21, 2022 Refused PRIVATE PPSV23 (PNEUMOVAX) Unknown March 21, 2022 Refus ed SOCIAL HISTORY Sex Assigned At : Social History Observation Description Sex Assigned At Unknown Alcohol Screen (Audit-C) Question Answer Notes Did you have a drink containing alcohol in the past year? Ye s Points 8 Interpretation Positive How often did you have 6 or more drinks on one occasio n in the past year? Weekly (3 points) How many drinks did you have on a typica l day when you were drinking in the past year? 5 or 6 (2 points) How often did you have a drink containing alcohol in t he past year? Two to three times per week (3 points) Cessation Question Answer Notes Date Tobacco Cessation Provided: 02/13/2021 PHQ2 Question Answer Notes In the last 2 weeks, how often have you had little interest or pleasure in doing things? Not at all In the last 2 weeks, how often have you been feeling down, depressed, or hopeless? Not at all Total PHQ2 Score 0 Tobacco use other than smoking: Question Answer Notes Are you an other tobacco user? No REASON FOR REFERRAL No Information VITAL SIGNS No information MEDICATIONS Medication SIG (Take, Route, Frequency, Duration) Notes Start Da te End Date Status Aspirin 81 MG 1 tablet Orally Once a day for 30 day(s) Active Pravastatin Sodium 40 MG 1 tablet Orally Once a day for 90 days Active Betamethasone Dipropionate 0.05 % 1 application Rn Internship ally Twice a day for 10 days Active Lisinopril-hydroCHLOROthiazide 20-25 MG 1 tablet Orally Once a day for 90 days Active PROCEDURES No Information RESULTS No Results REASON FOR VISIT Labs MEDICAL (GENERAL) HISTORY Type Description Date Medical History Mixed hyperlipidemia Medical History Essential (primary) hypertension Surgical History tonsillectomy Surgical History vasectomy Surgical History bladder cancer turpt 03/13/2022 Goals Section No Information Health Concerns No Information MEDICAL EQUIPMENT No Information MENTAL STATUS No Information FUNCTIONAL STATUS No Information ASSESSMENTS Encounter Date Diagnosis Assessment Notes Treatment Notes Treatm ent Clinical Notes Dec, Essential (primary) hypertension (ICD-10 - I10) Dec, Mixed hyperlipidemia (ICD-10 - E78.2) Dec, Screening PSA (prostate specific antigen ) (ICD-10 - Z12.5) PLAN OF TREATMENT Medication Medication Name Sig Start Date Stop Date Lisinopril-hydroCHLOROthiazide 20-25 MG 1 tablet Orally Once a day for 90 days Pravastatin Sodium 40 MG 1 tablet Orally Once a day for 90 days Next Appt Details Provider Name:CHUCK GALE, 2023-03-21 08:45:00 AM, [address] [place] [address], [id number], [place], [address], Insurance Providers Payer Name Payer Address Payer Phone Insured Name Patient Relati onship to Insured Coverage Start Date Coverage End Date Subscriber Number Group Nu mber [employer] [facility] [address] [address] [facility] [id number] Epi Holm Self - patient is the insured 2021 [id number] [facility] [address] [facility] [phone] Epi Holm Self - patient is the insured 2021 [id number]
--- OUTSIDE RECORDS SUMMARY | 2023-01-02 20:05 | XMS REPORT | Encounter Summary ---
Author Author [facility] Organization [facility] Address Unknown Phone Unavailable Care Team Providers Care Digital Content Coordinator Name Role Phone Self, Armaan SCHMIDT PCP Reason for Referral * MRI/CAT/PET Scan (Routine) - Authorized Diagnoses / Procedures Referred By Contact Referred To Conta ct Specialty Diagnoses Malignant neoplasm of urinary bladder, unspecified site (HCC) Neoplasm of uncertain behavior of prostate Procedures [place] [address] [place] [id number] Referral ID Status Reason Start Date Expiration Visits Vi sits Date Requested Authorized [id number] Authorized 03/16/2023 12/17/2023 1 1 R TAKERS SUPERVISOR Reason for Visit * Reason Comments Bladder Cancer Follow up Encounter Details Care Team Description Date [place] [address] [place] [address] [id number] Malignant neoplasm of urinary bladder, u nspecified site (HCC) (Primary Dx); Gross hematuria; Neoplasm of uncertain behavior of prostate 12/17/2022 Office Visit [facility] [address] [facility] [address] [place] [address] Social History Date Tobacco Use Types Packs/Day Years Used Quit: 05/2022 Smoking Tobacco: Former Cigarettes 50 Smokeless Tobacco: Never Tobacco Cessation: Counseling Given: Not Answered Comments Alcohol Use Standard Drinks/Week moderate Yes 0 (1 standard drink = 0.6 o z pure alcohol) Sex Assigned at Date Recorded Male 03/05/2022 9:36 AM CDT documented as of this encounter Last Filed Vital Signs Reading Time Taken Comments Vital Sign 164/91 12/17/2022 10:03 AM ORDER TAKERS SUPERVISOR Blood Pressure 100 12/17/2022 10:03 AM ORDER TAKERS SUPERVISOR Pulse - - Temperature - - Respiratory Rate - - Oxygen Saturation - - Inhaled Oxygen Concentration - - Weight - - Height - - Body Mass Index documented in this encounter Progress Notes * Swapnil Beverly MD - 12/17/2022 10:00 AM CST Urology follow up note Swpanil Beverly Encounter Date: 12/17/2022 2:06 PM Patient Demographic Information: Patient Name: Epi Holm Age: 67 y.o. Sex: male Date of : 1955 PCP: Armaan Negron MD Physician requesting consultation: No ref. provider found Chief Complaint Patient presents with Bladder Cancer Follow up The primary encounter diagnosis was Malignant neoplasm of urinary bladder, unspe cified site (HCC). Diagnoses of Gross hematuria and Neoplasm of uncertain behavi or of prostate were also pertinent to this visit. HPI Pt presents for follow-up and possible cystoscopy regarding bladder cancer Most recent occurance a few months ago Pattern of episodic Other diagnostic test biopsy, CT Scan and urinalysis Previous treatments of TURBT Associated symptoms: frequency, hesitancy, straining and weak stream AUA Score Sheet Over the past month... 1) Incomplete emptying 0 - Not at All 2) Frequency 1 - Less Than 1 Time in 5 3) Hesitancy 1 - Less Than 1 Time in 5 4) Urgency 0 - Not at All 5) Weak stream 1 - Less Than 1 Time in 5 6) Straining 1 - Less Than 1 Time in 5 7) Nocturia 1 - Less Than 1 Time in 5 Total Score 5 Quality of Life 0 - Delighted Histories No Known Allergies Current Medications Current Outpatient Medications Medication Sig Dispense Refill betamethasone dipropionate (DEL-BETA) 0.05 % cream 1 application lisinopriL-hydrochlorothiazide (PRINZIDE,ZESTORETIC) 20-25 mg per tablet Nick e 1 tablet by mouth daily. pravastatin (PRAVACHOL) 40 MG tablet Take 1 tablet (40 mg total) by mouth da kenan. No current facility-administered medications for this visit. Review of Systems Review of Systems Genitourinary: Positive for frequency, hesitancy and slow stream. LAB: Results for orders placed or performed in visit on 12/17/22 (from the past 24 ho ur(s)) POCT UA w Micro Only Result Value Ref Range Appearance, Urine Glucose Urine Negative Negative mg/dL Bilirubin Urine Negative Negative Ketones Urine Negative Negative Specific [place], UA 1.015 1.001 - 1.030 Hemoglobin Urine Negative Negative PH Urine 7.0 5.0 - 8.0 Protein Urine Qual Negative Negative Urobilinogen Urine 0.2 Negative EU/dL Nitrite Urine Negative Negative Leukocyte Esterase Negative Negative Microscopic Examination negative PSA Lab Results Component Value Date PSA 2.65 03/06/2022 No results found for: PSATOTAL No results found for: PSAFREE Physical Exam Vitals: 12/17/22 1003 BP: (!) 164/91 Pulse: 100 Gen: Alert and oriented Abd: Soft, non-tender, non-distended Back: No CVA tenderness on the RIGHT, No CVA tenderness on LEFT : Penis: normal, no lesions Urethral Meatus: normal Testicles: normal, no masses Scrotum: normal Epididymis: normal Vas deferens: normal Seminal Vesicles: nonpalpable: bilateral Skin of perineum: normal Assessment/Plan Problem List Bladder cancer (HCC) - Primary Overview TURBT 03-13-22 noninvasive low-grade for 5 cm lesion left side bladder Smokes daily still -schedule for TURBT -counselled in detail about smoking cessation 03/23/2022 Tolerated TURBT well and voiding well The base of the lesion did have a wider footprint then the papillary part UA uninfected Reviewed pathology with patient and in great detail and follow-up for kirstie er cancer - Counseled again regarding smoking cessation - Return to clinic 3 months for cystoscopy - Counseled regarding possible need for BCG but in his case given low-grade sendy nvasive we will hold off 06/18/2022 Cystoscopy negative for recurrence and bladder mucosa looks healthy - Reviewed pathology again with patient and and intended follow-up and also possible future need of BCG - We will send voided urine for cytology - Return to clinic in 3 months for cystoscopy 09/24/2022 Cystoscopy negative for recurrence and bladder mucosa looks healthy with scar on the left-hand side Counseled regarding smoking - Return to clinic 3 months for cystoscopy - We will repeat CT urogram in about 6 months 12/17/2022 Cystoscopy negative for recurrence and I can see the old scar on the left side - Counseled regarding smoking - Return to clinic in 3 months for cystoscopy and then will go to 6 months - Repeat CT urogram before we see him next time as well as BMP and PSA Relevant Orders POCT UA w Micro Only (Completed) Basic Metabolic Panel PSA Diagnostic CT Urogram Hematuria Overview 01/22/22 had gross hematuria Denies dysuria CT with contrast only with possible mass bladder No other lesions -CT verifies bladder tumor on the left side and he will be scheduled for TURBT Relevant Orders POCT UA w Micro Only (Completed) Neoplasm of uncertain behavior of prostate Overview 12/17/2022 PSA = 2.5 in February 2022 - We will recheck LINA and PSA in about 3 months Relevant Orders Basic Metabolic Panel PSA Diagnostic CT Urogram Return in about 3 months (around 03/16/2023) for possible cystoscopy. Electronically signed by: Swapnil Beverly 12/17/2022 2:06 PM R TAKERS SUPERVISOR documented in this encounter Plan of Treatment Care Team Description Date Type Specialty 03/18/2023 [place] [address] [place] [id number] 03/18/2023 Appointment [place] [address] [place] [id number] 03/25/2023 Office Visit Urology Order Schedule Name Type Priority Associated Diag noses 1 Occurrences starting 12/17/2022 until 12/17/2023 Basic Metabolic Panel Lab Routine Malignan t neoplasm of urinary bladder, unspecified site (HCC) Neoplasm of uncertain behavior of prostate Expected: 03/16/2023, Expires: 4 PSA Diagnostic Lab Routine Malignant neopl asm of urinary bladder, unspecified site (HCC) Neoplasm of uncertain behavior of prostate Expected: 03/16/2023, Expires: 4 CT Urogram Imaging Routine Malignant neopl asm of urinary bladder, unspecified site (HCC) Neoplasm of uncertain behavior of prostate documented as of this encounter Procedures Comments Procedure Name Priority Date/Time Associated Diag nosis POCT UA W MICRO ONLY Routine 12/17/2022 Malignant neoplasm of 10:20 AM ORDER TAKERS SUPERVISOR urinary bladder, unspecified site (HCC) Gross hematuria documented in this encounter Results * POCT UA w Micro Only (12/17/2022 10:20 AM ORDER TAKERS SUPERVISOR) Pathologist Signature Component Value Ref Test Method Analysis Performed A t Range Time Appearance, Urine Glucose Urine Negative Negative mg/dL Bilirubin Urine Negative Negative Ketones Urine Negative Negative Specific [place], UA 1.015 1.001 - 1.030 Hemoglobin Urine Negative Negative PH Urine 7.0 5.0 - 8.0 Protein Urine Qual Negative Negative Urobilinogen Urine 0.2 Negative EU/dL Nitrite Urine Negative Negative Leukocyte Esterase Negative Negative Microscopic negative Examination Anatomical Location / Laterality Collection Method / Volume Dennis ection Time Received Time Specimen (Source) 12/17/2022 10:20 AM ORDER TAKERS SUPERVISOR Urine Swapnil Beverly MD POINT OF CARE TEST ORDERABL ES documented in this encounter Visit Diagnoses Diagnosis Malignant neoplasm of urinary bladder, unspecified site (HCC) - Primary Gross hematuria Neoplasm of uncertain behavior of prost ate documented in this encounter Care Teams Start Date End Date Digital Content Coordinator Relationship Specialty 02/08/22 Armaan Negron MD PCP - General Family [address] [place] [address] [place] [address] documented as of this encounter
--- OUTSIDE RECORDS SUMMARY | 2023-01-02 20:05 | XMS REPORT ---
Author Author [facility] Address Unknown Phone Unavailable Care Team Providers Care Flocculator Operator Name Role Phone CHUCK GALE Unavailable PROBLEMS Type Condition ICD9-CM Code PXD23-RG Code Onset Dates Condition S tatus W/U Status Risk SNOMED Code Notes Problem History of colonic polyps Z86.010 confirmed [id number] Problem Cigarette nicotine dependence without complication F17.210 confirmed 25065100 Problem Mixed hyperlipidemia E78.2 Aug, confirmed [id number] Problem Psoriasis L40.9 confirmed 9415409 Problem Essential (primary) hypertension I10 conf irmed [id number] 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 [id number] ALLERGIES No Known Allergies ENCOUNTERS from 1955 to 2022-11-24 Encounter Location Date Provider Diagnosis [facility] [place] [id number] [address] Dec, Novavax IMMUNIZATIONS Vaccine Route Administration Date Status PRIVATE FLULAVAL QUAD 0.5ML (6 MO AND UP) 2018 Unknown F eb 2019 Refused PRIVATE PPSV23 (PNEUMOVAX) Unknown March 21, 2022 Refus ed PRIVATE PCV 13 (PREVNAR) Unknown March 21, 2022 Refused PRIVATE SHINGRIX (HERPES ZOSTER-2 DOSE) Unknown March 21, 2022 Refused PRIVATE FLULAVAL QUAD 0.5ML (6 MO AND UP) 2020 Unknown M ay 2021 Refused 1st Dose MODERNA COVID-19, mRNA, 0.5 mL Unknown March 21, 2022 Refused SOCIAL HISTORY Sex Assigned At : Social [...] Active Betamethasone Dipropionate 0.05 % 1 application Manager Of Network ally Twice a day for 10 days Active Lisinopril-hydroCHLOROthiazide 20-25 MG 1 tablet Orally Once a day for 90 days Active PROCEDURES No Information RESULTS No Results REASON FOR VISIT Med Refill MEDICAL (GENERAL) HISTORY Type Description Date Medical History Mixed hyperlipidemia Medical History Essential (primary) hypertension Surgical History tonsillectomy Surgical History vasectomy Surgical History bladder cancer turpt 03/13/2022 Goals Section No Information Health Concerns No Information MEDICAL EQUIPMENT No Information MENTAL STATUS No Information FUNCTIONAL STATUS No Information ASSESSMENTS No Information PLAN OF TREATMENT Medication Medication Name Sig Start Date Stop Date Lisinopril-hydroCHLOROthiazide 20-25 MG 1 tablet Orally Once a day for 90 days Pravastatin Sodium 40 MG 1 tablet Orally Once a day for 90 days Next Appt Details Provider Name:CHUCK Myers SHAHLA, 2023-03-21 08:45:00 AM, [address] [place] [address], [id number], [place], [address], Insurance Providers Payer Name Payer Address Payer Phone Insured Name Patient Relati onship to Insured Coverage Start Date Coverage End Date Subscriber Number Group Nu mber [employer]PS [facility] PART A [address] [facility] [phone] Epi Holm Self - patient is the insured 2021 [id number] [employer] [facility] [address] [address] [facility] [address] Epi Holm Self - patient is the insured 2021 [id number]
--- OUTSIDE RECORDS SUMMARY | 2023-01-02 20:05 | XMS REPORT | Clinical Summary ---
Author Author [facility] Organization [facility] Address Unknown Phone Unavailable Care Team Providers Care Teleradiologist Name Role Phone Self, Armaan SCHMIDT PCP Allergies No known active allergies Medications End Date Status Medication Sig Dispensed Refills Start Date Active betamethasone 1 application 0 dipropionate (DEL-BETA) 0.05 % cream Active lisinopriL-hydrochlorothi Take 1 tablet 0 02/09 azide by mouth 2 (PRINZIDE,ZESTORETIC) daily. 20-25 mg per tablet Active pravastatin (PRAVACHOL) Take 1 tablet 0 40 MG tablet (40 mg total) 2 by mouth daily. Active Problems Problem Noted Date Adrenal nodule 09/24/2022 Overview: Formatting of this note is di fferent from the original. 1.2 cm left adrenal nodule found on CT done for hematuria Patient is asymptomatic and has no symp toms of functioning adrenal adenoma - We will recheck this in about [address] - We will plan metabolic work-up for th is after characterization again by CT Neoplasm of uncertain behavior of prostate 2 Overview: Formatting of this note is di fferent from the original. 12/17/2022 PSA = 2.5 in February 2022 - We will recheck LINA and PSA in about 3 months Hematuria 02/26/2022 Overview: Formatting of this note is di fferent from the original. 01/22/22 had gross hematuria Denies dysuria CT with contrast only with possible mas s bladder No other lesions -CT verifies bladder tumor on the left side and he will be scheduled for TURBT Bladder cancer 02/26/2022 Overview: Formatting of this note is di fferent from the original. TURBT 03-13-22 noninvasive low-grade for 5 cm lesion left side bladder Smokes daily still -schedule for TURBT -counselled in detail about smoking casey jacques 03/23/2022 Tolerated TURBT well and voiding well The base of the lesion did have a wider footprint then the papillary part UA uninfected Reviewed pathology with patient and wif e in great detail and follow-up for bladder cancer - Counseled again regarding smoking casey jacques - Return to clinic 3 months for cystosc opy - Counseled regarding possible need for BCG but in his case given low-grade noninvasive we will hold off 06/18/2022 Cystoscopy negative for recurrence and bladder mucosa looks healthy - Reviewed pathology again with patient and and intended follow-up and also possible future need of BCG - We will send voided urine for cytolog y - Return to clinic in 3 months for cyst oscopy 09/24/2022 Cystoscopy negative for recurrence and bladder mucosa looks healthy with scar on the left-hand side Counseled regarding smoking - Return to clinic 3 months for cystosc opy - We will repeat CT urogram in about 6 months 12/17/2022 Cystoscopy negative for recurrence and I can see the old scar on the left side - Counseled regarding smoking - Return to clinic in 3 months for cyst oscopy and then will go to 6 months - Repeat CT urogram before we see him n ext time as well as BMP and PSA Encounters Care Team Description Date Type Specialty Swapnil Beverly MD 12/19/2022 Documentation Urology Swapnil Beverly MD Malignant neoplasm of urinary bladder, u nspecified site (HCC) (Primary Dx); Gross hematuria; Neoplasm of uncertain behavior of prostate 12/17/2022 Office Visit Urology from Last 3 Months Family History Medical History Relation Name Comments Heart disease Father Nephrolithiasis Father Nephrolithiasis Sister Relation Name Status Comments Father Sister Social History Date Tobacco Use Types Packs/Day Years Used Quit: 05/2022 Smoking Tobacco: Former Cigarettes 50 Smokeless Tobacco: Never Tobacco Cessation: Counseling Given: Not Answered Comments Alcohol Use Standard Drinks/Week moderate Yes 0 (1 standard drink = 0.6 o z pure alcohol) Sex Assigned at Date Recorded Male 03/05/2022 9:36 AM CDT Last Filed Vital Signs Reading Time Taken Comments Vital Sign 164/91 12/17/2022 10:03 AM INTERACTIVE WEB DEVELOPER Blood Pressure 100 12/17/2022 10:03 AM INTERACTIVE WEB DEVELOPER Pulse - - Temperature - - Respiratory Rate - - Oxygen Saturation - - Inhaled Oxygen Concentration 74.4 kg (164 lb) 03/23/2022 11:07 AM CDT Weight 172.7 cm (5' 8") 03/23/2022 11:07 AM CDT Height 24.94 03/23/2022 11:07 AM CDT Body Mass Index Plan of Treatment Care Team Description Date Type Specialty 03/18/2023 [place] [address] [place] [address] 03/18/2023 Appointment [place] [address] [place] [address] 03/25/2023 Office Visit Urology Health Maintenance Due Date Last Done Comments Colonoscopy 1955 Colorectal Cancer 1955 Screening FIT-DNA 1955 Fecal Occult Blood or FIT 1955 Hepatitis C Screen 1955 Sigmoidoscopy 1955 Td/Tdap# 1955 COVID-19 Vaccine (#1) 1955 Zoster Vaccine# (1 of 2) 02/10/2006 AAA 02/10/2021 Depression Screening 02/10/2021 PHQ-9 # Fall Risk Assessment # 02/10/2021 Pneumococcal Vaccine: 65+ 02/10/2021 Years (1 - PCV) Influenza Vaccine (#1) 2022 Advance Care Planning 11/11/2022 Conversation# Medicare Annual Wellness 11/11/2022 Social Determinants of 11/11/2022 Health# Procedures Comments Procedure Name Priority Date/Time Associated Diag nosis POCT UA W MICRO ONLY Routine 12/17/2022 Malignant neoplasm of 10:20 AM INTERACTIVE WEB DEVELOPER urinary bladder, unspecified site (HCC) Gross hematuria from Last 3 Months Results * POCT UA w Micro Only (12/17/2022 10:20 AM INTERACTIVE WEB DEVELOPER) Pathologist Signature Component Value Ref Test Method Analysis Performed A t Range Time Appearance, Urine Glucose Urine Negative Negative mg/dL Bilirubin Urine Negative Negative Ketones Urine Negative Negative Specific [place], UA 1.015 1.001 - 1.030 Hemoglobin Urine Negative Negative PH Urine 7.0 5.0 - 8.0 Protein Urine Qual Negative Negative Urobilinogen Urine 0.2 Negative EU/dL Nitrite Urine Negative Negative Leukocyte Esterase Negative Negative Microscopic negative Examination Anatomical Location / Laterality Collection Method / Volume Dennis ection Time Received Time Specimen (Source) 12/17/2022 10:20 AM INTERACTIVE WEB DEVELOPER Urine Swapnil Beverly MD POINT OF CARE TEST ORDERABL ES from Last 3 Months Insurance Type Payer Benefit Subscriber ID Effective Phone Address Plan / Dates Group Medicare MEDICARE MEDICARE [id number] 2021-P [phone] WPS [employer] PART A B resent ATTN CLAIMS DEPT [address] [place] [address] COMMERCIAL-NONCONTRACTED MISC [id number] 2021-P [address] COMMERCIAL resent [id number] [facility] [id number] Epi Holm Personal/F Self 1955 [id number] (Home) [place] [address] Care Teams Start Date End Date Teleradiologist Relationship Specialty 02/08/22 Armaan Negron MD PCP - General [address] [place] [address]
--- OUTSIDE RECORDS SUMMARY | 2023-01-02 20:05 | XMS REPORT | Encounter Summary ---
Author Author [facility] Organization [facility] Address Unknown Phone Unavailable Care Team Providers Care Social Media Project Manager Name Role Phone Armaan Negron MD PCP Encounter Details Care Team Description Date [place] [address], [place] [address] 12/19/2022 Documentation [facility] [address] [place] [address] Social History Date Tobacco Use Types Packs/Day Years Used Quit: 05/2022 Smoking Tobacco: Former Cigarettes 50 Smokeless Tobacco: Never Comments Alcohol Use Standard Drinks/Week moderate Yes 0 (1 standard drink = 0.6 o z pure alcohol) Sex Assigned at Date Recorded Male 03/05/2022 9:36 AM CDT documented as of this encounter Plan of Treatment Care Team Description Date Type Specialty 03/18/2023 [place] [address], [place] [address] 03/18/2023 Appointment [place] [address] [place] [address] 03/25/2023 Office Visit Urology documented as of this encounter Visit Diagnoses Not on filedocumented in this encounter Care Teams Start Date End Date Social Media Project Manager Relationship Specialty 02/08/22 Armaan Negron MD PCP - General [address] [place] [phone] documented as of this encounter
[2023-01-02] MEDS ORDERED: 1/2 NS IV SOLUTION 1,000 ML IV PRN (20:15)
[2023-01-02] MEDS ORDERED: MELATONIN 3 MG TABLET PO PRN (20:15)
[2023-01-02] MEDS ORDERED: NS IV 500 ML 500 ML IV SCH ×2 (20:15)
[2023-01-02] MEDS ORDERED: D5 1/2 NS 1000 ML IV SOLUTION 1,000 ML IV PRN (20:15)
[2023-01-02] MEDS ORDERED: ONDANSETRON 4 MG (ZOFRAN) ORAL DISSOLVE TAB PO PRN (20:15)
[2023-01-02] MEDS ORDERED: SENNA W/DOCUSATE (SENOKOT S) TABLET PO PRN (20:15)
[2023-01-02] MEDS ORDERED: diphenhydrAMINE 50 MG/ML INJ (BENADRYL) IVP PRN (20:15)
[2023-01-02] MEDS ORDERED: LORazepam INJ 2 MG/ML (ATIVAN) VIAL IV PRN (20:15)
[2023-01-02] MEDS ORDERED: diphenhydrAMINE 25 MG TAB (BENADRYL) PO PRN (20:15)
[2023-01-02] MEDS ORDERED: ANTACID SUSP 30 ML UDC (MYLANTA) PO PRN ×2 (20:15)
[2023-01-02] MEDS ORDERED: polyethylene glycoL POWDER 17 GM (MIRALAX) PACK PO PRN (20:15)
[2023-01-02] MEDS ORDERED: LORazepam INJ 2 MG/ML (ATIVAN) VIAL IM/IV PRN (20:15)
[2023-01-02] MEDS ORDERED: BISACODYL 10 MG SUPP (DULCOLAX) PR PRN (20:15)
[2023-01-02] MEDS ORDERED: ONDANSETRON 4 MG (ZOFRAN) ORAL DISSOLVE TAB SL PRN (20:15)
[2023-01-02] MEDS ORDERED: HYDROmorphone 2 MG/ML VIAL (DILAUDID) IV PRN (20:15)
[2023-01-02] MEDS ORDERED: ONDANSETRON 4 MG/2 ML (SDV) Z0FRAN IV PRN ×2 (20:15)
[2023-01-02] MEDS ORDERED: ACETAMINOPHEN 325 MG TABLET PO PRN (20:15)
[2023-01-02] MEDS ORDERED: LORazepam 1 MG (ATIVAN) TAB PO PRN (20:15)
[2023-01-02] MEDS ORDERED: NS IV 500 ML 500 ML IV PRN (20:15)
[2023-01-02 20:49] LABS: HEMOGLOBIN 4.4 g/dL (13.3-17.7)
[2023-01-02] MEDS: DOCUSATE SODIUM 100 MG (COLACE) CAP PO SCH (21:00)
--- NOTE | 2023-01-02 21:18 | Tele-ICU Progress Note ---
Progress Note 67M with HTN, HLD, recent bladder ca s/p removal, etoh use disorder admitted for GIB. Has had numerous episodes of coffee ground emesis and melena since 12/23. Has had some dizziness and presyncopal episodes. No LOC. Takes ibuprofen 600 mg qhs for years, drinks 2 shots, 8-9 beers and 2-3 glasses of wine daily. Has not had any etoh x4 days. - GIB: Patient at high risk for PUD and varices. Appears to be a relatively slow bleed. Surgery consulted for EGD in AM. Protonix initiated. - anemia: secondary to acute/subcute loss. HD stable with 112/53, 112. 3u PRBC ordered from ED, awaiting blood bank. Transfusion has not yet started. - lactic acidosis: likely hypoperfusion in the setting of severe anemia. Repeat pending now. Volume resuscitation ongoing. - hyponatremia: currently on NS at 125. Will get repeat Na and adjust as needed. Initial Na 122, goal 128 at 1600 tomorrow. - leukocytosis: suspect stress response but patient does meet SIRS criteria. Rocephin x1 given in ED. Will send blood cultures. Patient assessed via real-time audiovisual communication system. CCT 22 min Focused Exam Lactate Level 01/02/23 16:38: Lactic Acid Level 3.22*H 01/02/23 20:39: Height, Weight, BMI Height: '" Weight: lbs. oz. kg; 25.01 BMI Method: Lactic Acid Level Laboratory Tests Test 01/02/23 20:39 KRUPA KUMAR MD Jan 02, 2023 21:18
[2023-01-02] MEDS: NS IV 1000 ML 1,000 ML IV SCH (22:18)
[2023-01-02] MEDS: PANTOPRAZOLE 40 MG (PROTONIX) VIAL IV SCH (22:18)
[2023-01-02] MEDS: MAGNESIUM OXIDE (MAG-OX)400 MG TAB PO SCH (22:18)
[2023-01-02] MEDS: MAGNESIUM 1 GM/100 ML IVPB 100 ML IV SCH ×2 (22:18→23:44)
[2023-01-02 23:20] LABS: CALCIUM 7.9 MG/DL (8.5-10.1)
[2023-01-02 23:24] LABS: CREATININE SERUM 0.74 MG/DL (0.60-1.30)
[2023-01-03] VITALS (18 sets, daily range): BP systolic 107–141; BP diastolic 60–83
[2023-01-03] MEDS: NS IV 1000 ML 1,000 ML IV SCH (05:50)
[2023-01-03] MEDS ORDERED: MAGNESIUM 1 GM/100 ML IVPB 100 ML IV SCH (06:00)
[2023-01-03] MEDS ORDERED: KCL 20 MEQ TAB (K-DUR) PO SCH (06:00)
[2023-01-03] MEDS ORDERED: POTASSIUM CL 10MEQ/50ML IVPB 50 ML IV SCH (06:00)
[2023-01-03 06:18] LABS: BASOPHILS % (AUTO) 0 % (0-10); EOSINOPHILS # (AUTO) 0.1 10^3/uL (0.0-0.3); EOSINOPHILS % (AUTO) 0 % (0-10); LYMPHOCYTES # (AUTO) 2.1 10^3/uL (1.0-4.0); LYMPHOCYTES % (AUTO) 19 % (12-44); MEAN CORPUSCULAR HEMOGLOBIN 33 pg (25-34); MEAN CORPUSCULAR HGB CONC 35 g/dL (32-36); MEAN CORPUSCULAR VOLUME 94 fL (80-99); MEAN PLATELET VOLUME 10.1 fL (9.0-12.2); MONOCYTES # (AUTO) 1.5 10^3/uL (0.0-1.0); MONOCYTES % (AUTO) 13 % (0-12); NEUTROPHILS # (AUTO) 7.3 10^3/uL (1.8-7.8); NEUTROPHILS % (AUTO) 64 % (42-75); PLATELET COUNT 249 10^3/uL (130-400); WHITE BLOOD COUNT 11.4 10^3/uL (4.3-11.0)
[2023-01-03 06:27] LABS: HEMATOCRIT 20 % (40-54)
[2023-01-03 06:31] LABS: ALBUMIN 3.4 GM/DL (3.2-4.5); POTASSIUM 3.9 MMOL/L (3.6-5.0)
[2023-01-03 06:32] LABS: CALCIUM 8.1 MG/DL (8.5-10.1)
[2023-01-03 06:33] LABS: TOTAL PROTEIN 5.4 GM/DL (6.4-8.2)
[2023-01-03 06:35] LABS: BILIRUBIN,TOTAL 0.8 MG/DL (0.1-1.0)
[2023-01-03 06:36] LABS: PHOSPHORUS 3.9 MG/DL (2.3-4.7)
[2023-01-03 06:37] LABS: CREATININE SERUM 0.76 MG/DL (0.60-1.30)
[2023-01-03 06:40] LABS: MAGNESIUM 2.1 MG/DL (1.6-2.4)
[2023-01-03] MEDS: MAGNESIUM OXIDE (MAG-OX)400 MG TAB PO SCH ×2 (08:21→20:09)
[2023-01-03] MEDS: FOLIC ACID 1 MG TAB PO SCH (08:21)
[2023-01-03] MEDS: PANTOPRAZOLE 40 MG (PROTONIX) VIAL IV SCH ×2 (08:21→20:09)
[2023-01-03] MEDS: DOCUSATE SODIUM 100 MG (COLACE) CAP PO SCH ×2 (08:21→20:09)
--- NOTE | 2023-01-03 09:04 | Tele-ICU Progress Note ---
Subjective Date Seen by a Provider: Jan 03, 2023 Time Seen by a Provider: 09:03 Subjective/Events-last exam (Tele-ICU Physician , Progress Note ) Service provided via interactive audio and video telecommunications E-CARE system to a patient admitted to ICU bed in [facility]. Patient is seen today due to persistent need of ICU care Available chart/ vitals / labs / Images reviewed Video assessment done using teleICU camera, rest of exam as per RN Discussed with RN Events overnight : Afebrile hemodynamically stable Respiratory - I/O = Drips: Pressors- no Consultants: Hospital course: 67M with HTN, HLD, recent bladder ca s/p removal, etoh use disorder admitted for GIB. Has had numerous episodes of coffee ground emesis and melena since 12/23. Has had some dizziness and presyncopal episodes. No LOC. Takes ibuprofen 600 mg qhs for years, drinks 2 shots, 8-9 beers and 2-3 glasses of wine daily. Has not had any etoh x4 days. A/P GIB: Patient at high risk for PUD and varices. Appears to be a relatively slow bleed. Surgery consulted for EGD in AM. Protonix initiated. - anemia: secondary to acute/subcute loss. 3u PRBC - follow - lactic acidosis: likely hypoperfusion in the setting of severe anemia. - hyponatremia: currently on NS at 125 . Initial Na 122, goal 128 at 1600 today , this am 130 - stop IVF , repeat NA - leukocytosis: suspect stress response but patient does meet SIRS criteria. Rocephin x1 given in ED. blood cultures. ETON abuse - thiamine , folated , CIWA Lines : , (Central Line Necessity Reviewed) Bagley: OG: Nutrition: Analgesia: Anxiety/ delirium VTE Prophylaxis:sd Stress Ulcer Prophylaxis: ppi Plans in collaboration with bedside consultants and IM MDs. Discussed with RN to reach out if any questions or concerns A total of 20 minutes of critical care time was devoted to this patient today, required to treat and/or prevent further deterioration of critical care condition ( as above ) . I am remotely monitoring this patient from another state. I am unable to do the bedside exam, and history/physical and pertinent information is taken from other notes in the computer and bedside staff. Sepsis Event Evaluation Height, Weight, BMI Height: '" Weight: lbs. oz. kg; 24.60 BMI Method: Focused Exam Lactate Level 01/02/23 16:38: Lactic Acid Level 3.22*H 01/02/23 20:39: Lactic Acid Level 0.91 Exam Exam Patient acknowledged, consented, and participated in this virtual visit which was conducted using real time audio/video Vital Signs Date Time Temp Pulse Resp B/P (MAP) Pulse Ox O2 Delivery O2 Flow Rate FiO2 01/03/23 08:00 36.8 01/03/23 07:29 69 01/03/23 07:00 64 11 136/67 (90) 95 Room Air 01/03/23 06:00 71 16 134/66 (88) 97 Room Air 01/03/23 05:00 66 14 130/69 (89) 97 Room Air 01/03/23 04:15 37.0 73 14 141/80 97 01/03/23 04:12 37.0 01/03/23 04:00 61 17 116/62 (80) 95 Room Air 01/03/23 04:00 37.0 60 14 116/62 95 01/03/23 04:00 99 Room Air 01/03/23 03:45 37.0 61 13 123/71 95 01/03/23 03:30 37.0 69 16 107/60 94 01/03/23 03:15 37.0 72 115/65 01/03/23 03:00 37.0 70 13 129/69 96 Room Air 01/03/23 03:00 70 13 129/69 (89) 96 Room Air 01/03/23 02:45 37.0 72 12 132/70 94 01/03/23 02:30 36.9 74 15 130/70 94 01/03/23 02:15 36.9 76 25 125/69 94 01/03/23 02:00 36.8 82 16 139/83 95 Room Air 01/03/23 02:00 76 20 125/69 (87) 98 Room Air 01/03/23 01:45 36.8 75 9 133/70 97 01/03/23 01:30 36.8 71 17 129/64 95 01/03/23 01:15 36.8 73 11 117/68 94 01/03/23 01:00 71 14 116/62 (80) 94 Room Air 01/03/23 01:00 80 01/03/23 01:00 36.8 69 11 116/62 96 Room Air 01/03/23 00:45 36.8 71 13 125/63 96 01/03/23 00:45 36.8 71 13 125/63 96 Room Air 01/03/23 00:30 36.8 77 12 132/66 96 01/03/23 00:25 36.7 83 16 128/65 97 Room Air 01/03/23 00:18 36.8 112 18 01/03/23 00:17 113 18 99 01/03/23 00:00 36.8 66 14 131/72 98 Room Air 01/03/23 00:00 36.8 Room Air 01/03/23 00:00 75 13 131/72 (91) 100 Room Air 01/03/23 00:00 36.8 01/02/23 23:59 99 Room Air 01/02/23 23:45 36.8 66 16 112/65 96 01/02/23 23:30 36.8 69 14 114/54 95 01/02/23 23:15 36.8 78 20 98 01/02/23 23:05 36.8 78 17 110/58 98 01/02/23 23:00 77 14 110/58 (75) 96 Room Air 01/02/23 22:50 36.9 84 19 115/62 98 01/02/23 22:47 37.1 Room Air 01/02/23 22:36 37.1 84 17 129/61 94 01/02/23 22:21 37.1 84 18 122/61 98 Room Air 01/02/23 22:00 76 18 121/57 (78) 99 Room Air 01/02/23 21:15 102 16 128/61 (83) 94 Room Air 01/02/23 20:45 86 14 118/56 (76) 94 Room Air 01/02/23 20:36 36.0 96 21 100 01/02/23 20:15 79 15 125/56 (79) 96 Room Air 01/02/23 20:00 77 15 124/55 (78) 92 Room Air 01/02/23 20:00 99 Room Air 01/02/23 19:50 80 01/02/23 19:45 83 19 132/49 (76) 97 Room Air 01/02/23 19:30 84 19 124/56 (78) 97 Room Air 01/02/23 18:16 36.2 91 16 114/46 99 Room Air 01/02/23 16:30 36.0 96 16 139/58 (85) 100 Room Air I & O 01/03/23 07:00 Intake Total 2650 ml Output Total 1850 ml Balance 800 ml Height & Weight Height: '" Weight: lbs. oz. kg; 24.60 BMI Method: General Appearance: No Apparent Distress, WD/WN HEENT: PERRL/EOMI, Normal ENT Inspection, Pharynx Normal, Other (Normal visual bolivar and visual acuity) Neck: Full Range of Motion, Normal Inspection, Non Tender, Supple Respiratory: Chest Non Tender, Lungs Clear, Normal Breath Sounds, No Accessory Muscle Use, No Respiratory Distress Cardiovascular: Regular Rate, Rhythm, No Edema, Normal Peripheral Pulses Capillary Refill: Less Than 3 Seconds Extremity: Normal Capillary Refill, Normal Inspection, Normal Range of Motion, Non Tender, No Calf Tenderness, No Pedal Edema Neurologic/Psychiatric: Alert, Oriented x3, No Motor/Sensory Deficits, Normal Mood/Affect, wildland fire fighter II-XII Norm as Tested, Other (Normal gait, normal [id number]) Skin: Warm/Dry, Other (Pale) Results Lab Laboratory Tests 01/02/23 16:38 01/02/23 20:39 01/02/23 23:02 01/03/23 06:03 Assessment/Plan Assessment/Plan 1 GERALD BAINS MD Jan 03, 2023 09:04
[2023-01-03] MEDS ORDERED: MULT-1136 PO (11:01)
[2023-01-03] MEDS ORDERED: CHOL20003 PO (11:01)
[2023-01-03 13:18] LABS: HEMOGLOBIN 8.6 g/dL (13.3-17.7)
[2023-01-03 13:27] LABS: POTASSIUM 3.9 MMOL/L (3.6-5.0)
[2023-01-03 13:28] LABS: CALCIUM 8.1 MG/DL (8.5-10.1)
--- NOTE | 2023-01-03 13:29 | History & Physical-Hospitalist ---
MILDRED VALENZUELA 01/03/23 1329: History of Present Illness HPI/Chief Complaint Serena Ni is a 67M with past medical hx of HTN, HLD, and bladder cancer. He presented to the ED on 01/02 for weakness. Earlier this week on Saturday he experienced multiple episode of dark emesis and stools. This episode resolved on its own but he felt progressively weak thereafter. He reports episodes of collapsing but denies loc. He denies any history of GI bleed prior. He had colonoscopy done with Dr Harrison in 2021 with 3 polyps excised. Never had upper endoscopy. He reports drinking a 24 pack of beer per week and other mixed drinks as well. Today he is seen at bedside. He is resting comfortably and reports feeling much better than yesterday. Received 3 units of LRRBCs overnight with improvement in energy/weakness noted today. He denies any bloody stool or emesis overnight. Source: patient Exam Limitations: no limitations Date Seen 01/03/23 Attending Physician Armaan Negron MD PCP Admitting Physician: Naima Bender DO Attending Physician: Naima Bender DO Referring Physician Date of Admission Jan 02, 2023 at 19:26 Home Medications & Allergies Home Medications Reviewed patient Home Medication Reconciliation performed by pharmacy medication reconciliations certified dialysis technician and/or nursing. Patients Allergies have been reviewed. Allergies Allergies Coded Allergies No Known Drug Allergies (Unverified04/23/21) Past Zxnaqbw-Jnlflt-Hgrdof Hx Patient Social History Tobacco Use?: No Smoking Status: Former Smoker (50 pack year hx) Smokeless Tobacco Frequency: Never a User Use of E-Cig and/or Vaping dev: No Substance use?: No Alcohol Use?: Yes Alcohol type: Beer, Hard Liquor, Wine Alcohol Frequency: Daily Additional Alcohol Comments: 3 SHOTS HARD LIQUOR, 8 BEERS, AND 2-3 GLASSES OF WINE DAILY Pt feels they are or have been: No Immunizations Up To Date Tetanus Booster (TDap): Unknown Seasonal Allergies Seasonal Allergies: No Current Status Advance Directives: No Primary Language: Swedish Preferred Spoken Language: Swedish Sensory deficits: Vision impairment Past Medical History Surgeries: Bladder Surgery, Tonsillectomy, Vasectomy High Cholesterol, Hypertension Bladder Blood Disorders: No Family Medical History Other Conditions/Hx (Denies fam hx of colon cancer, chron's, or UC) Review of Systems Constitutional: No chills, No fever Respiratory: No cough, No short of breath Cardiovascular: No chest pain, No palpitations, No syncope Gastrointestinal: No abdominal pain, No hematemesis, No jaundice, No nausea, No vomiting Genitourinary: No dysuria, No hematuria Skin: other (pallor) Psychiatric/Neurological: Denies Headache, Denies Numbness Physical Exam Physical Exam Vital Signs Vital Signs - First Documented 01/02/23 01/02/23 16:30 20:36 Temp 36.0 Pulse 96 Resp 16 B/P (MAP) 139/58 (85) Pulse Ox 100 O2 Delivery Room Air FiO2 100 Capillary Refill : Less Than 3 Seconds Height, Weight, BMI Height: '" Weight: lbs. oz. kg; 24.60 BMI Method: General Appearance: No Apparent Distress, WD/WN HEENT: PERRL/EOMI, Moist Mucous Membranes; No Scleral Icterus (L), No Scleral Icterus (R) Neck: Supple Respiratory: Chest Non Tender, Lungs Clear, No Accessory Muscle Use Cardiovascular: Regular Rate, Rhythm, Normal Peripheral Pulses Gastrointestinal: Non Tender, Soft Rectal: Deferred Extremity: Normal Capillary Refill, No Pedal Edema Neurologic/Psychiatric: Alert, Oriented x3, Normal Mood/Affect Skin: No Cyanosis, No Jaundice; Pallor Results Results/Procedures Labs Laboratory Tests 01/02/23 16:38 01/02/23 20:39 01/02/23 23:02 01/03/23 06:03 Patient resulted labs reviewed. Imaging [facility], [place] NAME: SERENA NI Re [facility] REC#: [id number] PT STATUS: ADM Bill : 1955 PHYSICIAN: STEVIE ABEBE MD ADMIT DATE: 01/02/23/ICU Signed Date of Exam:01/02/23 CHEST 1 VIEW AP/PA ONLY CLINICAL INDICATION: Patient with blurry vision, weakness and fatigue. EXAM: Portable chest x-ray upright view. COMPARISON: None. FINDINGS: Lungs/pleura: Lungs are clear. There is no pneumothorax. There is no pleural effusion. Mediastinum: Unremarkable. Pulmonary vasculature: Unremarkable. Heart: Unremarkable. Bones/extrathoracic soft tissue: There are degenerative spurs involving the thoracic spine. IMPRESSION: There is no radiographic evidence of acute cardiopulmonary process. Dictated by: Dictated on workstation # [id number] Dict: 01/02/23 1705 Trans: 01/02/232321 [id number] Interpreted by: CAITLIN JO MD Electronically signed by: CAITLIN JO MD 01/02/232321 Assessment/Plan Admission Diagnosis GI bleed Anemia Admission Status: Observation Reason for Inpatient Admission: GI bleed Anemia Assessment and Plan GI bleed Symptomatic anemia Received 3 units of LRRBCs overnight with appropriate response in Hgb, at 7.0 this AM General surgery consulted for possible endoscopy IV PPI Continue to monitor h/h Transfuse if necessary MCV wnl Hyponatremia Improved, IV fluids held due to rate of correction Alcohol overuse CIWA protocol, monitor for signs of withdrawal Moved to 4th floor today Clinical Quality Measures AMI/AHF: ASA po Prior to arrival: No NAIMA BENDER DO 01/04/23 0513: History of Present Illness Source: patient Exam Limitations: no limitations Time Seen by a Provider: 11:00 Assessment/Plan Admission Diagnosis GIB Alcoholism Admission Status: Observation Supervisory-Addendum Brief Verification & Attestation Participated in pt care: history, MDM, physical Personally performed: exam, history, MDM, supervision of care Care discussed with: Medical Student Procedures: n/a Results interpretation: Verified all documentation Verification and Attestation of Medical Student E/M Service A medical student performed and documented this service in my presence. I reviewed and verified all information documented by the medical student and made modifications to such information, when appropriate. I personally performed the physical exam and medical decision making. Naima Bender Jan 04, 2023,05:13 MILDRED VALENZUELA Jan 03, 2023 13:29 NAIMA BENDER DO Jan 04, 2023 05:13
[2023-01-03 13:33] LABS: CREATININE SERUM 0.8 MG/DL (0.60-1.30)
--- NOTE | 2023-01-03 16:42 | CONSULTATION REPORT ---
DATE OF SERVICE: 01/03/2023 ATTENDING PRIMARY CARE PHYSICIAN: Dr. Armaan Negron. PRESENT ILLNESS: The patient is a 67-year-old male who presented to [place] emergency department with numerous episodes of vomiting of dark tarry substance. He states that this initially occurred one and half weeks ago and he also noticed some dark coloration of the stools. He states that he felt better; however, then developed similar symptoms with nausea and vomiting of coffee-ground emesis type of material. With this, he also felt lightheaded. Upon further questioning, he does have a number of risk factors for peptic ulcer disease including taking NSAIDs daily for years. He also drinks 6-9 beers daily and has a longstanding history of smoking for greater than 40 pack years. He did have a colonoscopy in 03/2022 where mild diverticulosis and a small polyp was identified, no other abnormalities detected. Laboratory work was done and he did have a significantly low hemoglobin of 4.4. Since being admitted and placed on IV fluids and Protonix, he has not had any episodes of GI bleeding. PAST MEDICAL HISTORY: Hypertension, hypercholesterolemia. PAST SURGICAL HISTORY: Vasectomy, tonsillectomy. ALLERGIES: No known drug allergies. MEDICATIONS: Lisinopril/hydrochlorothiazide 20/25 mg daily, pravastatin 40 mg daily. SOCIAL HISTORY: Previous smoke, greater than 40 pack years; however, he states that he quit in the past few weeks. He does drink 6-8 beers daily. FAMILY HISTORY: Noncontributory. VITAL SIGNS: Temperature 36.9, blood pressure 114/72, pulse 70, respirations 14, pulse ox 99% on room air. REVIEW OF SYSTEMS: Well-nourished male. Currently in no acute distress. He is not experiencing shortness of breath or difficulty breathing. No chest pain, palpitations, diaphoresis. He presented with nausea and vomiting of coffee-ground emesis as well as dark tarry stools; however, has not had any episodes since admission. He states that he has had some minor issues with reflux in the past. He does not report any red blood per rectum, nor any dark tarry stools. No fever or chills as well as no recent inadvertent weight loss. All other review of systems negative. PHYSICAL EXAMINATION: CHEST: Scattered wheezes and rhonchi bilaterally. HEART: Regular. No murmurs. EXTREMITIES: No lower extremity edema. Negative Homans sign. HEENT: No scleral icterus. No cervical lymphadenopathy. ABDOMEN: Soft, nondistended. There is mild discomfort in the epigastric region upon deep palpation. SKIN: Warm, dry. LABORATORY DATA: WBC 11.4, hemoglobin 8.6, hematocrit 25, platelets 249, BUN 8, creatinine 0.80. ASSESSMENT AND PLAN: A 67-year-old male with upper GI bleed and gastritis, resulting in multiple episodes of coffee-ground emesis as well as dark tarry stools. He did have a recent colonoscopy done in 03/2022 which did not show any potential bleeding sources. Due to his significant risk factors for peptic ulcer disease and reflux; we will schedule him for an EGD as well as biopsies as appropriate on this admission. Job ID: [id number] DocumentID: [id number] Dictated Date: 01/03/2023 16:14:59 Executive Administrative Asst Date: 01/03/2023 16:40:00 Dictated By: KRIS BAIRD MD
--- NOTE | 2023-01-03 16:52 | Progress Note-Pre Operative ---
Pre-Operative Progress Note Date of Available H&P: Jan 03, 2023 Date H&P Reviewed: Jan 03, 2023 Time H&P Reviewed: 17:00 History & Physical: No changes noted Pre-Operative Diagnosis: KRIS VEGA MD Jan 03, 2023 16:52
[2023-01-04 03:56] LABS: BASOPHILS # (AUTO) 0.1 10^3/uL (0.0-0.1); BASOPHILS % (AUTO) 1 % (0-10); EOSINOPHILS # (AUTO) 0.1 10^3/uL (0.0-0.3); EOSINOPHILS % (AUTO) 1 % (0-10); HEMATOCRIT 24 % (40-54); LYMPHOCYTES # (AUTO) 2.1 10^3/uL (1.0-4.0); LYMPHOCYTES % (AUTO) 17 % (12-44); MEAN CORPUSCULAR HEMOGLOBIN 32 pg (25-34); MEAN CORPUSCULAR HGB CONC 33 g/dL (32-36); MEAN CORPUSCULAR VOLUME 96 fL (80-99); MEAN PLATELET VOLUME 10.2 fL (9.0-12.2); MONOCYTES # (AUTO) 1.6 10^3/uL (0.0-1.0); MONOCYTES % (AUTO) 14 % (0-12); NEUTROPHILS # (AUTO) 7.8 10^3/uL (1.8-7.8); NEUTROPHILS % (AUTO) 66 % (42-75); PLATELET COUNT 350 10^3/uL (130-400); WHITE BLOOD COUNT 11.9 10^3/uL (4.3-11.0)
[2023-01-04 04:05] LABS: ALBUMIN 3.2 GM/DL (3.2-4.5); POTASSIUM 4.1 MMOL/L (3.6-5.0)
[2023-01-04 04:06] LABS: CALCIUM 8.2 MG/DL (8.5-10.1)
[2023-01-04 04:08] LABS: TOTAL PROTEIN 5.1 GM/DL (6.4-8.2)
[2023-01-04 04:10] LABS: BILIRUBIN,TOTAL 0.5 MG/DL (0.1-1.0)
[2023-01-04 04:11] LABS: CREATININE SERUM 0.78 MG/DL (0.60-1.30)
[2023-01-04] MEDS: DOCUSATE SODIUM 100 MG (COLACE) CAP PO SCH (08:37)
[2023-01-04] MEDS: PANTOPRAZOLE 40 MG (PROTONIX) VIAL IV SCH (08:37)
[2023-01-04] MEDS: MAGNESIUM OXIDE (MAG-OX)400 MG TAB PO SCH (08:38)
[2023-01-04] MEDS: FOLIC ACID 1 MG TAB PO SCH (08:38)
[2023-01-04] MEDS ORDERED: LACTATED RINGERS 1,000 ML IV STA (11:31)
[2023-01-04] MEDS ORDERED: HURRICAINE EXT TUBE (BENZOCAINE) XX PRN (11:45)
[2023-01-04] MEDS ORDERED: LIDOCAINE JELLY 2% 6 ML SYRINGE MM PRN (11:45)
[2023-01-04] MEDS ORDERED: proPOfol 200 MG/20 ML (DIPRIVAN) VIAL IV ONE (12:42)
[2023-01-04] MEDS ORDERED: LIDOCAINE JELLY 2% 6 ML SYRINGE ONE (12:46)
--- NOTE | 2023-01-04 12:56 | Progress Note ---
MILDRED VALENZUELA 01/04/23 1256: Progress Note Epi Holm is a 67M with past medical hx of HTN, HLD, bladder cancer, and alcohol use disorder who presented to the ED on 01/02 for weakness after a 24 period of hematemesis and melena earlier in the week. HPI from ED "67yoM with PMH of HTN, HLD, recent bladder cancer s/p removal, and alcohol use disorder coming in due to numerous episodes of black vomit and stool On the night of the Superbowl, was having some nausea. This came back this week with a few days ago about 24 hrs of n/v. He states the vomit and stool were essentially the same color and describes essentially coffee ground emesis. Feels light headed at times and vision sometimes seems to go partially black. Denies any chest pain, SOB, abd pain, diarrhea, focal weakness, or any other concerns. He takes 600mg of ibuprofen nightly and has for years. He drinks 2 shots of liquor, 8-9 beers, and 2 to 3 glasses of wine daily. He has not had any alcohol in almost 4 days." In the ER he was found to be significantly anemic with Hgb in the 4s. CXR and head CT were negative. Liver enzymes were wnl. He was found to be hyponatremic at 122. He was given ceftriaxone, pantoprazole, and odansetron. He was subsequently admitted to the ICU for blood transfusion and observation HPI on admission "Epi Holm is a 67M with past medical hx of HTN, HLD, and bladder cancer. He presented to the ED on 01/02 for weakness. Earlier this week on Saturday he experienced multiple episode of dark emesis and stools. This episode resolved on its own but he felt progressively weak thereafter. He reports episodes of collapsing but denies loc. He denies any history of GI bleed prior. He had colonoscopy done with Dr Harrison in 2021 with 3 polyps excised. Never had upper endoscopy. He reports drinking a 24 pack of beer per week and other mixed drinks as well. Today he is seen at bedside. He is resting comfortably and reports feeling much better than yesterday. Received 3 units of LRRBCs overnight with improvement in energy/weakness noted today. He denies any bloody stool or emesis overnight." He received 3 units of LRRBCs on 01/03 with appropriate rise in Hgb to 7.0 then 8.6 Did not have any hematemesis or melena while admitted His sodium was corrected with IV fluids, rate and concentration adjusted at times due to too quick of a rise in order to prevent ODS. Sodium normalized without issue IV protonix for ulcer prophylaxis Blood cx revealed no growth and MRSA screen was negative General surgery was consulted on admission to assess need for endoscopy Tele ICU also consulted and assisted in managing electrolytes and fluid resuscitation Made NPO for endoscopy, prior to this he was on bland diet Upper score performed on 01/[address] Michaels, results pending No further bleeding noted, Hgb remained low but stable after transfusion Will likely discharge this afternoon with outpatient follow up with Dr Michaels and his PCP in the following week NAIMA BENDER DO 01/05/23 0526: Supervisory-Addendum Brief Verification & Attestation Participated in pt care: history, MDM, physical Personally performed: exam, history, MDM, supervision of care Care discussed with: Medical Student Procedures: n/a Results interpretation: Verified all documentation Verification and Attestation of Medical Student E/M Service A medical student performed and documented this service in my presence. I reviewed and verified all information documented by the medical student and made modifications to such information, when appropriate. I personally performed the physical exam and medical decision making. Naima Bender, Jan 05, 2023,05:26 MILDRED VALENZUELA Jan 04, 2023 12:56 NAIMA BENDER DO Jan 05, 2023 05:26
[2023-01-04 13:15] VITALS: BP 101/52
[2023-01-04 13:20] VITALS: BP 106/55
--- NOTE | 2023-01-04 13:38 | Anesthesia-General Post-Op ---
MAC Patient Condition Mental Status/LOC: Same as Preop Cardiovascular: Satisfactory Nausea/Vomiting: Absent Respiratory: Satisfactory Pain: Controlled Complications: Absent Post Op Complications Complications None Follow Up Care/Instructions Patient Instructions None needed. Anesthesiology Discharge Order Discharge Order Patient is doing well, no complaints, stable vital signs, no apparent adverse anesthesia problems. No complications reported per nursing. ZAK RODRIGUEZ CRNA Jan 04, 2023 13:38
[2023-01-04] MEDS ORDERED: PANT40TA2 PO (14:12)
[2023-01-04] MEDS ORDERED: SUCR1TAB36 PO (14:12)
--- NOTE | 2023-01-04 14:13 | Discharge Summary ---
Discharge Summary Hospital Course Was the Problem List Reviewed?: Yes Problems/Dx: (1) GI bleed Status: Acute Qualifiers: Qualified Codes: K92.1 - Melena (2) Anemia Status: Acute Qualifiers: Qualified Codes: D62 - Acute posthemorrhagic anemia (3) Alcoholism Hospital Course Date of Admission: Jan 02, 2023 at 19:26 Admission Diagnosis : Family Physician/Provider: Armaan Negron MD Date of Discharge: 01/04/23 Discharge Diagnosis: [ ] Hospital Course: Epi Holm is a 67M with past medical hx of HTN, HLD, bladder cancer, and alcohol use disorder who presented to the ED on 01/02 for weakness after a 24 period of hematemesis and melena earlier in the week. HPI from ED "67yoM with PMH of HTN, HLD, recent bladder cancer s/p removal, and alcohol use disorder coming in due to numerous episodes of black vomit and stool On the night of the Superbowl, was having some nausea. This came back this week with a few days ago about 24 hrs of n/v. He states the vomit and stool were essentially the same color and describes essentially coffee ground emesis. Feels light headed at times and vision sometimes seems to go partially black. Denies any chest pain, SOB, abd pain, diarrhea, focal weakness, or any other concerns. He takes 600mg of ibuprofen nightly and has for years. He drinks 2 shots of liquor, 8-9 beers, and 2 to 3 glasses of wine daily. He has not had any alcohol in almost 4 days." In the ER he was found to be significantly anemic with Hgb in the 4s. CXR and head CT were negative. Liver enzymes were wnl. He was found to be hyponatremic at 122. He was given ceftriaxone, pantoprazole, and odansetron. He was subsequently admitted to the ICU for blood transfusion and observation HPI on admission "Epi Holm is a 67M with past medical hx of HTN, HLD, and bladder cancer. He presented to the ED on 01/02 for weakness. Earlier this week on Saturday he experienced multiple episode of dark emesis and stools. This episode resolved on its own but he felt progressively weak thereafter. He reports episodes of collapsing but denies loc. He denies any history of GI bleed prior. He had colonoscopy done with Dr Harrison in 2021 with 3 polyps excised. Never had upper endoscopy. He reports drinking a 24 pack of beer per week and other mixed drinks as well. Today he is seen at bedside. He is resting comfortably and reports feeling much better than yesterday. Received 3 units of LRRBCs overnight with im provement in energy/weakness noted today. He denies any bloody stool or emesis overnight." He received 3 units of LRRBCs on 01/03 with appropriate rise in Hgb to 7.0 then 8.6 Did not have any hematemesis or melena while admitted His sodium was corrected with IV fluids, rate and concentration adjusted at times due to too quick of a rise in order to prevent ODS. Sodium normalized without issue IV protonix for ulcer prophylaxis Blood cx revealed no growth and MRSA screen was negative General surgery was consulted on admission to assess need for endoscopy Tele ICU also consulted and assisted in managing electrolytes and fluid resuscitation Made NPO for endoscopy, prior to this he was on bland diet Upper score performed on 01/[address] Michaels, results pending No further bleeding noted, Hgb remained low but stable after transfusion Will likely discharge this afternoon with outpatient follow up with Dr Michaels and his PCP in the following week MILDRDE VALENZUELA Labs and Pending Lab Test: Laboratory Tests 01/04/23 03:39: White Blood Count 11.9H, Red Blood Count 2.54L, Hemoglobin 8.0L, Hematocrit 24L, Mean Corpuscular Volume 96, Mean Corpuscular Hemoglobin 32, Mean Corpuscular Hemoglobin Concent 33, Red Cell Distribution Width 16.8H, Platelet Count 350, Mean Platelet Volume 10.2, Immature Granulocyte % (Auto) 2, Neutrophils (%) (Auto) 66, Lymphocytes (%) (Auto) 17, Monocytes (%) (Auto) 14H, Eosinophils (%) (Auto) 1, Basophils (%) (Auto) 1, Neutrophils # (Auto) 7.8, Lymphocytes # (Auto) 2.1, Monocytes # (Auto) 1.6H, Eosinophils # (Auto) 0.1, Basophils # (Auto) 0.1, Immature Granulocyte # (Auto) 0.2H, Sodium Level 135, Potassium Level 4.1, Chloride Level 104, Carbon Dioxide Level 22, Anion Gap 9, Blood Urea Nitrogen 7, Creatinine 0.78, Estimat Glomerular Filtration Rate 98, BUN/Creatinine Ratio 9, Glucose Level 102, Calcium Level 8.2L, Corrected Calcium 8.8, Magnesium Level 2.0, Total Bilirubin 0.5, Aspartate Amino Transf (AST/SGOT) 23, Alanine Aminotransferase (ALT/SGPT) 27, Alkaline Phosphatase 63, Total Protein 5.1L, Albumin 3.2 Microbiology 01/02/23 MRSA Screen - Final, Complete MRSA not isolated 01/02/23 Blood Culture - Preliminary, Resulted No growth Home Meds Active Carafate (Sucralfate) 1 Gram Tablet 1 Gm PO ACHS Protonix (Pantoprazole Sodium) 40 Mg Tablet.dr 40 Mg PO DAILY Reported Vitamin D3 (Cholecalciferol (Vitamin D3)) 50 Mcg (2000 Unit) Capsule 50 Mcg PO DAILY Multivitamin 1 Each Tablet 1 Each PO DAILY Pravastatin Sodium 40 Mg Tablet 40 Mg PO HS Lisinopril-Hctz 20-25 mg Tab (Lisinopril/Hydrochlorothiazide) 20 Mg-25 Mg Tablet 1 Each PO HS Assessment/Pt Instructions pcp 1 week Discharge Planning: <30 minutes discharge planning Discharge Instructions Discharge Diet: No Restrictions Discharge Physical Examination Vital Signs Vital Signs Date Time Temp Pulse Resp B/P (MAP) Pulse Ox O2 Delivery O2 Flow Rate FiO2 01/04/23 14:03 36.2 66 18 144/67 (92) 97 Room Air 01/03/23 20:02 0.00 21 General Appearance: No Apparent Distress, WD/WN, Chronically ill Allergies: Coded Allergies: No Known Drug Allergies (Unverified , 04/23/21) Discharge Summary Date of Admission Jan 02, 2023 at 19:26 Date of Discharge Discharge Date: Jan 04, 2023 Admission Diagnosis GIB Alcoholism Clinical Quality Measures AMI/AHF: ASA po Prior to arrival: EVELYN Davis DO Jan 04, 2023 14:13
--- NOTE | 2023-01-04 20:14 | OPERATIVE REPORT ---
DATE OF SERVICE: 01/04/2023 ATTENDING PRIMARY CARE PHYSICIAN: Dr. Armaan Negron. PREOPERATIVE DIAGNOSIS: Symptomatic anemia with dark tarry stools. POSTOPERATIVE DIAGNOSES: Reflux esophagitis, [place] grade C with small esophageal ulceration with overlying fibrin clot, moderate size hiatal hernia, 2.5 cm in size, moderate gastritis, duodenal ulcer with overlying fibrin clot. PROCEDURE: EGD with biopsy. SURGEON: Kris Baird MD ANESTHESIA: monitored anesthesia care. ESTIMATED BLOOD LOSS: Minimal. FINDINGS: Reflux esophagitis, [place] grade C with small esophageal ulceration with overlying fibrin clot, moderate size hiatal hernia, 2.5 cm in size, moderate gastritis, duodenal ulcer with overlying fibrin clot. DISPOSITION: The patient tolerated the procedure well. INDICATIONS: The patient is a 67-year-old male who presented to the emergency department with weakness, fatigue as well as episodes of nausea and vomiting including what was described as coffee-ground emesis. He is unsure if he has had any darker stools in the past. He does have a number of risk factors for peptic ulcer disease including a daily cigarette smoking, alcohol as well as caffeinated beverages. DESCRIPTION OF PROCEDURE: The patient was brought to the endoscopy suite and laid in the left lateral decubitus position. After adequate IV pain and sedative medications and monitored anesthesia care, the mouthpiece was applied. The endoscope was placed in the mouth, visualizing the pharynx and hypopharyngeal region. Vocal cords, epiglottis and vallecula identified and appeared to be normal. Endoscope was then gently intubated into the esophageal opening and esophagus insufflated. The endoscope was then advanced through the first, second, third portions of esophagus. At the level of the GE junction, reflux esophagitis, [place] grade C identified with small esophageal ulceration with an overlying fibrin clot and no active bleed. A biopsy was taken of the GE junction with forceps with visualization of good hemostasis. The endoscope was then advanced into the stomach and endoscope retroflexed visualizing a small to moderate size hiatal hernia approximately 2.5 cm in size. There was a moderate severity gastritis and a biopsy was taken of the antrum to rule out H. pylori. The endoscope was then advanced through the pylorus and the first and second portion of the duodenum where duodenal ulcer identified with an overlying fibrin clot and no active bleeding. The lesion was less than 1 cm in size. The endoscope was then slowly withdrawn while taking second look and suctioning of residual air with no additional findings. The patient tolerated the procedure well. He will need to undergo the necessary lifestyle and dietary accommodation including alcohol and smoking cessation as well as moderation of caffeinated beverages, spicy, greasy and acidic foods. We will also start him on Protonix 40 mg daily as well as Carafate 1 gram q.i.d. for the next 2 weeks and also on a p.r.n. basis. We will also recommend a followup EGD in 8 weeks to confirm healing of the ulcerations. Job ID: [id number] DocumentID: [id number] Dictated Date: 01/04/2023 13:31:00 Powder Core Tester Date: 01/04/2023 20:13:00 Dictated By: KRIS BAIRD MD
== END 2023-01-04 14:39 | disposition home or self-care (01) ==
LOC: EDUNIT# 16:27 → ER FS 16:31 → INTOOBSV 19:26 → ICU 19:26 → 4TH 01-04 12:45
PROVIDERS: ADMIT Internal Medicine; ATTEND Internal Medicine
DX: K29.70 Gastritis, unspecified, without bleeding (principal); K21.00 Gastro-esophageal reflux disease with esophagitis, without bleeding; K22.11 Ulcer of esophagus with bleeding; K26.4 Chronic or unspecified duodenal ulcer with hemorrhage; K92.1 Melena; D62 Acute posthemorrhagic anemia; D64.9 Anemia, unspecified; K44.9 Diaphragmatic hernia without obstruction or gangrene; E87.1 Hypo-osmolality and hyponatremia; F10.20 Alcohol dependence, uncomplicated; Z87.891 Personal history of nicotine dependence; Z79.899 Other long term (current) drug therapy
CPT/HCPCS: 36415; 36430; 43239; 70450; 71045; 80048 ×2; 80053 ×3; 82274; 82947 ×2; 83605 ×2; 83690; 83735 ×3; 83880; 84100; 84484; 85007; 85014 ×2; 85018 ×2; 85025 ×2; 85027; 85610; 85730; 86850; 86900; 86901; 86920; 87040; 87081; 93005; 93041; 96361 ×2; 96366; 96375; 96376 ×3; 99284; G0378 ×2; G0480; P9016 ×2; 80320

== ENCOUNTER 2023-04-10 16:06 | Emergency (ER) | payer MEDICARE, OTHER ==
[~2023-04-10 16:06] MED LIST changes: +CHOL20003 PO; +MULT-1136 PO; +PANT40TA2 PO; +SUCR1TAB36 PO
--- NOTE | 2023-04-10 16:18 | ED General ---
General Chief Complaint: General Problems/Pain Stated Complaint: WEAKNESS,NAUSEA History of Present Illness Date Seen by Provider: April 10, 2023 Time Seen by Provider: 16:17 Initial Comments 68-year-old male presents with some generalized malaise, weakness and nausea. Patient reports back in December he had some bleeding ulcers and had up having low hemoglobin and had to have blood transfusion. He is currently on Protonix. Reports over the last couple weeks he just feels like he is still weak and havi ng similar symptoms. Patient had a physical all on 03/21/2023 in which she had a normal hemoglobin but presents because he just wants to be evaluated. No chest pain, vomiting or dark tarry stools noted. Allergies and Home Medications Allergies Coded Allergies: No Known Drug Allergies (Unverified , 04/23/21) Patient Home Medication List Home Medication List Reviewed: Yes Cholecalciferol (Vitamin D3) (Vitamin D3) 50 Mcg (2000 Unit) Capsule, 50 MCG PO DAILY, (Reported) Entered as Reported by: NACHO JARQUIN on 01/03/23 1101 Lisinopril/Hydrochlorothiazide (Lisinopril-Hctz 20-25 mg Tab) 20 Mg-25 Mg Tablet, 1 EACH PO HS, (Reported) Entered as Reported by: VERA GOMEZ on 03/28/22 1040 Multivitamin (Multivitamin) 1 Each Tablet, 1 EACH PO DAILY, (Reported) Entered as Reported by: NACHO JARQUIN on 01/03/23 1101 Pantoprazole Sodium (Protonix) 40 Mg Tablet.dr, 40 MG PO DAILY Prescribed by: EVELYN BENDER on 01/04/23 1412 Pravastatin Sodium (Pravastatin Sodium) 40 Mg Tablet, 40 MG PO HS, (Reported) Entered as Reported by: VERA GOMEZ on 03/28/22 1040 Sucralfate (Carafate) 1 Gram Tablet, 1 GM PO ACHS Prescribed by: EVELYN BENDER on 01/04/23 1412 Review of Systems Review of Systems Constitutional: weakness Respiratory: No cough, No dyspnea on exertion Cardiovascular: No chest pain Gastrointestinal: No abdominal pain, No melena; nausea; No vomiting Genitourinary: no symptoms reported Musculoskeletal: no symptoms reported Skin: no symptoms reported Psychiatric/Neurological: No Symptoms Reported Hematologic/Lymphatic: No Symptoms Reported Past Uxrszcv-Yqsfvw-Alzddo Hx Seasonal Allergies Seasonal Allergies: No Past Medical History Surgery/Hospitalization HX: HTN HYPERLIPIDEMIA BLADDER CANCER Surgeries: Yes (TURBT) Bladder Surgery, Tonsillectomy, Vasectomy Respiratory: No Cardiac: Yes High Cholesterol, Hypertension Neurological: No Genitourinary: No (recent TURBT) Gastrointestinal: No Musculoskeletal: No Endocrine: No HEENT: No Cancer: No Bladder Psychosocial: No Integumentary: No Blood Disorders: No Family Medical History Other Conditions/Hx Physical Exam Vital Signs Vital Signs - First Documented 04/10/23 16:12 Temp 35.9 Pulse 110 Resp 16 B/P (MAP) 184/82 (116) Pulse Ox 98 O2 Delivery Room Air Capillary Refill : Height, Weight, BMI Height: '" Weight: lbs. oz. kg; 24.60 BMI Method: General Appearance: No Apparent Distress Respiratory: Lungs Clear, Normal Breath Sounds Cardiovascular: Regular Rate, Rhythm, No Edema Neurologic/Psychiatric: Alert, Oriented x3, No Motor/Sensory Deficits, Normal Mood/Affect Skin: Normal Color, Warm/Dry Progress/Results/Core Measures Suspected Sepsis SIRS Temperature: Pulse: Respiratory Rate: Laboratory Tests 04/10/23 16:30: White Blood Count 10.2 Blood Pressure / Mean: Laboratory Tests 04/10/23 16:30: Creatinine 0.80, Platelet Count 326, Total Bilirubin 0.9 Results/Orders Lab Results Laboratory Tests Test 04/10/23 16:12 04/10/23 16:30 Range/Units Urine Color YELLOW Urine Clarity CLEAR Urine pH 7.5 5-9 Urine Specific [place] 1.010 L 1.016-1.022 Urine Protein NEGATIVE NEGATIVE Urine Glucose (UA) NEGATIVE NEGATIVE Urine Ketones TRACE H NEGATIVE Urine Nitrite NEGATIVE NEGATIVE Urine Bilirubin NEGATIVE NEGATIVE Urine Urobilinogen 0.2 < = 1.0 MG/DL Urine Leukocyte Esterase NEGATIVE NEGATIVE Urine RBC (Auto) NEGATIVE NEGATIVE Urine RBC NONE /HPF Urine WBC NONE /HPF Urine Crystals NONE /LPF Urine Bacteria NEGATIVE /HPF Urine Casts NONE /LPF Urine Mucus NEGATIVE /LPF Urine Culture Indicated NO White Blood Count 10.2 4.3-11.0 10^3/uL Red Blood Count 5.12 4.30-5.52 10^6/uL Hemoglobin 13.2 L 13.3-17.7 g/dL Hematocrit 40 40-54 % Mean Corpuscular Volume 79 L 80-99 fL Mean Corpuscular Hemoglobin 26 25-34 pg Mean Corpuscular Hemoglobin Concent 33 32-36 g/dL Red Cell Distribution Width 19.9 H 10.0-14.5 % Platelet Count 326 130-400 10^3/uL Mean Platelet Volume 9.6 9.0-12.2 fL Immature Granulocyte % (Auto) 0 % Neutrophils (%) (Auto) 69 42-75 % Lymphocytes (%) (Auto) 19 12-44 % Monocytes (%) (Auto) 10 0-12 % Eosinophils (%) (Auto) 0 0-10 % Basophils (%) (Auto) 1 0-10 % Neutrophils # (Auto) 7.1 1.8-7.8 10^3/uL Lymphocytes # (Auto) 2.0 1.0-4.0 10^3/uL Monocytes # (Auto) 1.0 0.0-1.0 10^3/uL Eosinophils # (Auto) 0.0 0.0-0.3 10^3/uL Basophils # (Auto) 0.1 0.0-0.1 10^3/uL Immature Granulocyte # (Auto) 0.0 0.0-0.1 10^3/uL Sodium Level 132 L 135-145 MMOL/L Potassium Level 4.0 3.6-5.0 MMOL/L Chloride Level 94 L 98-107 MMOL/L Carbon Dioxide Level 21 21-32 MMOL/L Anion Gap 17 H 5-14 MMOL/L Blood Urea Nitrogen 8 7-18 MG/DL Creatinine 0.80 0.60-1.30 MG/DL Estimat Glomerular Filtration Rate 97 BUN/Creatinine Ratio 10 Glucose Level 101 70-105 MG/DL Calcium Level 9.5 8.5-10.1 MG/DL Corrected Calcium 8.5-10.1 MG/DL Magnesium Level 1.8 1.6-2.4 MG/DL Total Bilirubin 0.9 0.1-1.0 MG/DL Aspartate Amino Transf (AST/SGOT) 54 H 5-34 U/L Alanine Aminotransferase (ALT/SGPT) 44 0-55 U/L Alkaline Phosphatase 99 40-136 U/L Total Protein 8.0 6.4-8.2 GM/DL Albumin 4.8 H 3.2-4.5 GM/DL My Orders Orders - HODGES,CARMEN L DO Cbc With Automated Diff (04/10/23 16:21) Comprehensive Metabolic Panel (04/10/23 16:21) Magnesium (04/10/23 16:21) Ua Culture If Indicated (04/10/23 16:21) Ekg Tracing (04/10/23 16:21) Monitor-Rhythm Ecg Trace Only (04/10/23 16:21) Vital Signs/I&O 04/10/23 16:12 Temp 35.9 Pulse 110 Resp 16 B/P (MAP) 184/82 (116) Pulse Ox 98 O2 Delivery Room Air Capillary Refill : Progress Note : Progress Note Patient's diagnostic studies were ordered reviewed and interpreted by me. Patient's EKG showed sinus tachycardia/rhythm at 100. WI 154 QRS 85 no acute changes. Patient's labs showed a hemoglobin of 13.5 this is improved from his prior. Patient has a slight low sodium which he states is baseline for him. Patient and his were just a little scared from what happened previously and they just want to make sure that he was okay. I discussed further treatment or IV fluids but at this time he felt that they are ready be discharged home. If he is not feeling a little bit more perky or by Saturday or Saturday next week he will follow-up with Dr. Negron. I recommended that he return with any concerns. Patient was stable and discharged ECG Initial ECG Impression Date: April 10, 2023 Initial ECG Impression Time: 16:28 Initial ECG Rate: 100 Initial ECG Rhythm: Normal Sinus Initial ECG Impression: Nonspecific Changes Comment No acute ST changes or elevation Departure Impression Primary Impression: Malaise and fatigue Disposition: 01 HOME, SELF-CARE Condition: Stable Departure-Patient Inst. Referrals: CHUCK NEGRON MD (PCP/Family) Primary Care Physician Patient Instructions: Fatigue ED Add. Discharge Instructions: Please follow-up with Dr. Negron early next week if your symptoms have not improved over the weekend. Be sure to drink plenty of fluids. Return to the ER with any concerns or worsening of symptoms. All discharge instructions reviewed with patient and/or family. Voiced understanding. CARMEN HODGES DO April 10, 2023 16:17
[2023-04-10 16:37] LABS: BASOPHILS # (AUTO) 0.1 10^3/uL (0.0-0.1); BASOPHILS % (AUTO) 1 % (0-10); EOSINOPHILS % (AUTO) 0 % (0-10); HEMATOCRIT 40 % (40-54); HEMOGLOBIN 13.2 g/dL (13.3-17.7); LYMPHOCYTES % (AUTO) 19 % (12-44); MEAN CORPUSCULAR HEMOGLOBIN 26 pg (25-34); MEAN CORPUSCULAR HGB CONC 33 g/dL (32-36); MEAN CORPUSCULAR VOLUME 79 fL (80-99); MEAN PLATELET VOLUME 9.6 fL (9.0-12.2); MONOCYTES % (AUTO) 10 % (0-12); NEUTROPHILS # (AUTO) 7.1 10^3/uL (1.8-7.8); NEUTROPHILS % (AUTO) 69 % (42-75); PLATELET COUNT 326 10^3/uL (130-400); WHITE BLOOD COUNT 10.2 10^3/uL (4.3-11.0)
[2023-04-10 16:40] LABS: BILIRUBIN,URINE NEGATIVE (NEGATIVE); CLARITY,URINE CLEAR; COLOR,URINE YELLOW; GLUCOSE, URINE (UA) NEGATIVE (NEGATIVE); KETONES,URINE TRACE (NEGATIVE); LEUKOCYTE ESTERASE ,URINE NEGATIVE (NEGATIVE); NITRITE,URINE NEGATIVE (NEGATIVE); PH,URINE 7.5 (5-9); PROTEIN,URINE NEGATIVE (NEGATIVE)
[2023-04-10 16:48] LABS: BACTERIA,URINE NEGATIVE /HPF
[2023-04-10 17:03] LABS: ALANINE AMINOTRANSFERASE 44 U/L (0-55); ALBUMIN 4.8 GM/DL (3.2-4.5); ALKALINE PHOSPHATASE 99 U/L (40-136); BILIRUBIN,TOTAL 0.9 MG/DL (0.1-1.0); BUN/CREATININE RATIO 10; CALCIUM 9.5 MG/DL (8.5-10.1); CARBON DIOXIDE 21 MMOL/L (21-32); CHLORIDE 94 MMOL/L (98-107); GFR ESTIMATED 97; GLUCOSE 101 MG/DL (70-105); MAGNESIUM 1.8 MG/DL (1.6-2.4); SODIUM 132 MMOL/L (135-145)
[2023-04-10 17:23] VITALS: BP 184/82
== END 2023-04-10 17:23 | disposition home or self-care (01) ==
LOC: EDUNIT# 16:06 → ER FS 16:07
DX: R53.81 Other malaise (principal); R53.83 Other fatigue; R00.0 Tachycardia, unspecified; Z28.310 Unvaccinated for COVID-19
CPT/HCPCS: 36415; 80053; 81000; 83735; 85025; 93005